=== PATIENT | male | born 1945 | race Two or more races ===

== ENCOUNTER → 2022-05-20 | Outpatient (CLI) | payer OTHER ==
[2022-05-21 07:07] LABS: RPR Non Reactive (Non Reactive)
== END | disposition home or self-care (01) ==
LOC: LAB 08:40
PROVIDERS: ATTEND Internal Medicine
DX: H47.011 Ischemic optic neuropathy, right eye (principal)
CPT/HCPCS: 86592

== ENCOUNTER → 2022-07-11 | Outpatient (CLI) | payer OTHER | END | disposition home or self-care (01) | LOC: LAB 10:24 | PROVIDERS: ATTEND Internal Medicine | DX: R97.20 Elevated prostate specific antigen [PSA] (principal) | CPT/HCPCS: 84153 ==

== ENCOUNTER → 2023-02-19 | Outpatient (CLI) | payer OTHER ==
[2023-02-19 09:05] LABS: Basophils # (auto) 0.1 10 ^3/uL (0-0.2); Basophils % (auto) 0.9 % (0.0-2.0); Eosinophils # (auto) 0.3 10 ^3/uL (0-0.8); Eosinophils % (auto) 3.9 % (0.0-7.0); Hematocrit 45.3 % (41.0-53.0); Hemoglobin 15.1 g/dL (13.5-17.5); Lymphocytes # (auto) 2.6 10 ^3/uL (0.4-5.4); Lymphocytes % (auto) 35.2 % (10.0-50.0); Mean Corpuscular Hemoglobin 31.2 pg (28.0-32.0); Mean Corpuscular Hgb Conc. 33.4 g/dL (32.0-36.0); Mean Corpuscular Volume 93.5 fL (80.0-100.0); Monocytes # (auto) 0.6 10 ^3/uL (0-1.3); Monocytes % (auto) 7.8 % (0.0-12.0); Neutrophils # (auto) 3.9 10 ^3/uL (1.6-8.6); Neutrophils % (auto) 52.2 % (37.0-80.0); Red Blood Cells 4.85 10^6/uL (4.5-5.90); Red Cell Distribution Width 15.5 % (11.8-14.3); White Blood Cell 7.5 10^3/uL (4.4-10.8)
[2023-02-19 09:50] LABS: Albumin 4.5 g/dL (3.2-4.8); Alkaline Phosphatase 86 U/L (46-116); Anion Gap 8.4 (5-15); Aspartate Aminotransferase 13 U/L (13-40); BUN/Creatinine Ratio 11.9 (10.0-20.0); Blood Urea Nitrogen 12 mg/dL (9-23); Calcium 9.2 mg/dL (8.5-10.1); Carbon Dioxide 25.6 mmol/L (20-30); Chloride 104 mmol/L (98-107); Glucose 90 mg/dL (74-106); LDL Cholesterol 157 mg/dL (< 100); Potassium 3.6 mmol/L (3.5-5.1); Sodium 138 mmol/L (136-145); Triglycerides 124 mg/dL (< 150)
[2023-02-19 09:51] LABS: Cholesterol 232 mg/dL (< 200); HDL Cholesterol 63 mg/dL (40-59)
[2023-02-19 09:52] LABS: Bilirubin, Total 1.1 mg/dL (0.2-1.0); Total Protein 7.3 g/dL (5.7-8.2)
[2023-02-19 10:03] LABS: Alanine Aminotransferase < 9 U/L (7-40)
== END | disposition home or self-care (01) ==
LOC: LAB 08:27
PROVIDERS: ATTEND Internal Medicine
DX: Z00.01 Encounter for general adult medical examination with abnormal findings (principal); I12.9 Hypertensive chronic kidney disease with stage 1 through stage 4 chronic kidney disease, or unspecified chronic kidney disease; N18.2 Chronic kidney disease, stage 2 (mild); E55.9 Vitamin D deficiency, unspecified
CPT/HCPCS: 36415; 80053; 80061; 82274; 82306; 83036; 84439; 84443; 85025

== ENCOUNTER → 2023-04-17 | Outpatient (CLI) | payer OTHER ==
[2023-04-17 08:41] LABS: Basophils # (auto) 0.1 10 ^3/uL (0-0.2); Eosinophils # (auto) 0.5 10 ^3/uL (0-0.8); Eosinophils % (auto) 7.4 % (0.0-7.0); Hematocrit 48.7 % (41.0-53.0); Lymphocytes # (auto) 2.9 10 ^3/uL (0.4-5.4); Lymphocytes % (auto) 39.1 % (10.0-50.0); Mean Corpuscular Hemoglobin 31.3 pg (28.0-32.0); Mean Corpuscular Hgb Conc. 32.9 g/dL (32.0-36.0); Mean Corpuscular Volume 94.9 fL (80.0-100.0); Monocytes # (auto) 0.6 10 ^3/uL (0-1.3); Monocytes % (auto) 7.7 % (0.0-12.0); Neutrophils # (auto) 3.3 10 ^3/uL (1.6-8.6); Neutrophils % (auto) 44.8 % (37.0-80.0); Red Blood Cells 5.13 10^6/uL (4.5-5.90); White Blood Cell 7.4 10^3/uL (4.4-10.8)
[2023-04-17 09:08] LABS: Urine Bacteria NONE SEEN /hpf (None Seen); Urine Blood Negative /uL (Negative); Urine Clarity Clear (Clear); Urine Color Yellow (Yellow); Urine Mucus FEW (None Seen); Urine Protein, UAD 1+ (Negative); Urine Specific Gravity 1.019 (1.001-1.035); Urine Urobilinogen Normal (Negative); Urine WBC <1 /hpf (0 - 3)
[2023-04-17 09:23] LABS: Prostate Specific Antigen 12.17 ng/mL (0.0-4.0)
[2023-04-17 09:24] LABS: Albumin 4.6 g/dL (3.2-4.8); Alkaline Phosphatase 89 U/L (46-116); Anion Gap 6 (5-15); Aspartate Aminotransferase 16 U/L (13-40); Calcium 9.7 mg/dL (8.5-10.1); Carbon Dioxide 30 mmol/L (20-30); Chloride 104 mmol/L (98-107); Cholesterol 223 mg/dL (< 200); Glucose 94 mg/dL (74-106); HDL Cholesterol 66 mg/dL (40-59); LDL Cholesterol 142 mg/dL (< 100); Potassium 4.8 mmol/L (3.5-5.1); Sodium 140 mmol/L (136-145); Triglycerides 129 mg/dL (< 150)
[2023-04-17 09:25] LABS: BUN/Creatinine Ratio 13.4 (10.0-20.0); Bilirubin, Total 1.1 mg/dL (0.2-1.0); Blood Urea Nitrogen 15 mg/dL (9-23); Total Protein 7.2 g/dL (5.7-8.2)
[2023-04-17 09:26] LABS: Free T4 (Free Thyroxine) 1.41 ng/dL (0.89-1.76)
[2023-04-17 09:28] LABS: Alanine Aminotransferase < 9 U/L (7-40)
[2023-04-17 12:17] LABS: Free T3 3.09 pg/mL (2.3-4.2)
== END | disposition home or self-care (01) ==
LOC: LAB 08:27
PROVIDERS: ATTEND Nurse Practitioner Gerontology
DX: Z01.00 Encounter for examination of eyes and vision without abnormal findings (principal)
CPT/HCPCS: 36415; 80053; 80061; 81001; 83036; 83735; 84153; 84439; 84443; 84481; 85025; 87086

== ENCOUNTER → 2023-05-19 | Outpatient (CLI) | payer OTHER ==
[2023-05-19 09:09] LABS: Basophils # (auto) 0.1 10 ^3/uL (0-0.2); Basophils % (auto) 0.9 % (0.0-2.0); Eosinophils # (auto) 0.5 10 ^3/uL (0-0.8); Eosinophils % (auto) 6.7 % (0.0-7.0); Hematocrit 49.8 % (41.0-53.0); Hemoglobin 16.4 g/dL (13.5-17.5); Lymphocytes % (auto) 36.9 % (10.0-50.0); Mean Corpuscular Hemoglobin 31.4 pg (28.0-32.0); Mean Corpuscular Hgb Conc. 32.8 g/dL (32.0-36.0); Mean Corpuscular Volume 95.8 fL (80.0-100.0); Monocytes # (auto) 0.6 10 ^3/uL (0-1.3); Monocytes % (auto) 7.6 % (0.0-12.0); Neutrophils # (auto) 3.8 10 ^3/uL (1.6-8.6); Neutrophils % (auto) 47.9 % (37.0-80.0); Red Cell Distribution Width 14.8 % (11.8-14.3)
[2023-05-19 09:45] LABS: Alanine Aminotransferase 14 U/L (7-40); Albumin 4.7 g/dL (3.2-4.8); Alkaline Phosphatase 110 U/L (46-116); Anion Gap 7 (5-15); Aspartate Aminotransferase 20 U/L (13-40); BUN/Creatinine Ratio 10.3 (10.0-20.0); Blood Urea Nitrogen 11 mg/dL (9-23); Calcium 9.7 mg/dL (8.5-10.1); Carbon Dioxide 29 mmol/L (20-30); Chloride 103 mmol/L (98-107); Cholesterol 147 mg/dL (< 200); Glucose 92 mg/dL (74-106); LDL Cholesterol 68 mg/dL (< 100); Potassium 4.2 mmol/L (3.5-5.1); Sodium 139 mmol/L (136-145); Triglycerides 129 mg/dL (< 150)
[2023-05-19 09:46] LABS: HDL Cholesterol 65 mg/dL (40-59); Total Protein 7.2 g/dL (5.7-8.2)
[2023-05-19 09:47] LABS: Bilirubin, Total 1.2 mg/dL (0.2-1.0)
[2023-05-19 09:50] LABS: Urine Bacteria NONE SEEN /hpf (None Seen); Urine Blood Negative /uL (Negative); Urine Clarity Clear (Clear); Urine Color Colorless (Yellow); Urine Mucus FEW (None Seen); Urine Protein, UAD TRACE (Negative); Urine Specific Gravity 1.014 (1.001-1.035); Urine Urobilinogen Normal (Negative); Urine WBC 1 /hpf (0 - 3)
[2023-05-19 10:38] LABS: Prostate Specific Antigen 11.56 ng/mL (0.0-4.0)
[2023-05-19 10:41] LABS: Free T3 3.52 pg/mL (2.3-4.2); Free T4 (Free Thyroxine) 1.36 ng/dL (0.89-1.76)
== END | disposition home or self-care (01) ==
LOC: LAB 08:50
PROVIDERS: ATTEND Nurse Practitioner Gerontology
DX: Z00.01 Encounter for general adult medical examination with abnormal findings (principal)
CPT/HCPCS: 36415; 80053; 80061; 81001; 83036; 83735; 84153; 84439; 84443; 84481; 85025; 87086

== ENCOUNTER → 2023-06-03 | Outpatient (CLI) | payer OTHER | END | disposition home or self-care (01) | LOC: XYW 06-02 08:17 | PROVIDERS: ATTEND Student in an Organized Health Care Education/Training Program | DX: R07.9 Chest pain, unspecified (principal); I51.89 Other ill-defined heart diseases | CPT/HCPCS: 93306 ==

== ENCOUNTER → 2023-07-28 | Outpatient (CLI) | payer OTHER ==
[2023-07-28 10:06] LABS: Basophils # (auto) 0.1 10 ^3/uL (0-0.2); Basophils % (auto) 1.1 % (0.0-2.0); Eosinophils # (auto) 0.5 10 ^3/uL (0-0.8); Eosinophils % (auto) 6.2 % (0.0-7.0); Hematocrit 46.4 % (41.0-53.0); Hemoglobin 15.4 g/dL (13.5-17.5); Lymphocytes % (auto) 37.3 % (10.0-50.0); Mean Corpuscular Hemoglobin 31.1 pg (28.0-32.0); Mean Corpuscular Hgb Conc. 33.2 g/dL (32.0-36.0); Mean Corpuscular Volume 93.7 fL (80.0-100.0); Monocytes # (auto) 0.6 10 ^3/uL (0-1.3); Monocytes % (auto) 7.2 % (0.0-12.0); Neutrophils % (auto) 48.2 % (37.0-80.0); Nucleated Red Blood Cells % 0.1 %; Red Blood Cells 4.95 10^6/uL (4.5-5.90); Red Cell Distribution Width 15.6 % (11.8-14.3); White Blood Cell 8.2 10^3/uL (4.4-10.8)
[2023-07-28 10:18] LABS: Urine Bacteria NONE SEEN /hpf (None Seen); Urine Blood Negative /uL (Negative); Urine Clarity Clear (Clear); Urine Color Yellow (Yellow); Urine Mucus FEW (None Seen); Urine Protein, UAD 1+ (Negative); Urine Specific Gravity 1.021 (1.001-1.035); Urine Urobilinogen Normal (Negative); Urine WBC 1 /hpf (0 - 3); Urine pH 5.5 (5.0-8.0)
[2023-07-28 10:25] LABS: Alanine Aminotransferase 13 U/L (7-40); Alkaline Phosphatase 107 U/L (46-116); Anion Gap 8 (5-15); BUN/Creatinine Ratio 15.6 (10.0-20.0); Blood Urea Nitrogen 15 mg/dL (9-23); Calcium 9.5 mg/dL (8.5-10.1); Carbon Dioxide 26 mmol/L (20-30); Chloride 106 mmol/L (98-107); Glucose 97 mg/dL (74-106); Potassium 3.5 mmol/L (3.5-5.1); Sodium 140 mmol/L (136-145)
[2023-07-28 10:26] LABS: Albumin 4.7 g/dL (3.2-4.8)
[2023-07-28 10:27] LABS: Bilirubin, Total 0.9 mg/dL (0.2-1.0)
[2023-07-28 10:49] LABS: Aspartate Aminotransferase 21 U/L (13-40)
[2023-07-28 12:55] LABS: Creatinine, Urine 131.35 mg/dL (30.0-125.0)
== END | disposition home or self-care (01) ==
LOC: LAB 08:44
PROVIDERS: ATTEND Internal Medicine Nephrology
DX: E11.22 Type 2 diabetes mellitus with diabetic chronic kidney disease (principal); N18.30 Chronic kidney disease, stage 3 unspecified; R80.9 Proteinuria, unspecified; D63.1 Anemia in chronic kidney disease; E55.9 Vitamin D deficiency, unspecified; M10.9 Gout, unspecified; E21.3 Hyperparathyroidism, unspecified; E11.21 Type 2 diabetes mellitus with diabetic nephropathy; N39.0 Urinary tract infection, site not specified
CPT/HCPCS: 36415; 80053; 81001; 82043; 82306; 82570; 83036; 83970; 85025; 87086

== ENCOUNTER → 2023-08-07 | Outpatient (CLI) | payer OTHER ==
[~2023-08-07] VITALS: Ht 152.4 cm; Wt 59.0 kg
[2023-08-07] MEDS: ADENOSINE 50 MG in GIVE UN-DILUTED 0 ML IV ONE (10:36)
== END | disposition home or self-care (01) ==
LOC: XYW 08:10
PROVIDERS: ATTEND Student in an Organized Health Care Education/Training Program
DX: R07.9 Chest pain, unspecified (principal); I10 Essential (primary) hypertension; E78.5 Hyperlipidemia, unspecified
CPT/HCPCS: 78452; 93017; A9500; J0153

== ENCOUNTER 2023-08-20 09:34 | Day surgery (SDC) | payer OTHER ==
[2023-08-14 11:39] LABS: Basophils # (auto) 0.1 10 ^3/uL (0-0.2); Eosinophils # (auto) 0.4 10 ^3/uL (0-0.8); Eosinophils % (auto) 5.4 % (0.0-7.0); Hematocrit 46.9 % (41.0-53.0); Hemoglobin 15.5 g/dL (13.5-17.5); Lymphocytes # (auto) 2.5 10 ^3/uL (0.4-5.4); Lymphocytes % (auto) 33.5 % (10.0-50.0); Mean Corpuscular Hgb Conc. 33.2 g/dL (32.0-36.0); Mean Corpuscular Volume 93.3 fL (80.0-100.0); Monocytes # (auto) 0.5 10 ^3/uL (0-1.3); Neutrophils # (auto) 3.9 10 ^3/uL (1.6-8.6); Neutrophils % (auto) 53.1 % (37.0-80.0); Red Blood Cells 5.02 10^6/uL (4.5-5.90); Red Cell Distribution Width 15.2 % (11.8-14.3); White Blood Cell 7.3 10^3/uL (4.4-10.8)
[2023-08-14 12:05] LABS: Alanine Aminotransferase 13 U/L (7-40); Albumin 4.8 g/dL (3.2-4.8); Alkaline Phosphatase 105 U/L (46-116); Anion Gap 7 (5-15); Aspartate Aminotransferase 20 U/L (13-40); BUN/Creatinine Ratio 16.2 (10.0-20.0); Blood Urea Nitrogen 16 mg/dL (9-23); Calcium 9.4 mg/dL (8.7-10.4); Carbon Dioxide 28 mmol/L (20-30); Chloride 105 mmol/L (98-107); Glucose 153 mg/dL (74-106); INR 0.99 (0.9-1.15); Partial Thromboplastin Time 27.9 SEC (24.5-34.5); Potassium 3.7 mmol/L (3.5-5.1); Prothrombin Time 10.4 sec (9.3-11.8); Sodium 140 mmol/L (136-145)
[2023-08-14 12:06] LABS: Total Protein 7.4 g/dL (5.7-8.2)
[~2023-08-20] VITALS: Ht 152.4 cm; Wt 58.1 kg
[~2023-08-20 09:34] MED LIST: ATO40T PO; NIFE1TAB30 PO; TELM1TAB33 PO
[2023-08-20] MEDS ORDERED: SODIUM CHLORIDE LOCK 10 ML ONE (10:29)
[2023-08-20] MEDS: fentaNYL CITRATE 100 MCG/2 ML VL ONE (11:03)
[2023-08-20] MEDS: MIDAZOLAM HCL 5 MG/ML-1ML VIAL ONE (11:03)
[2023-08-20] MEDS: diphenhdrAMINE HCL 50 MG/1 ML VL ONE (11:03)
[2023-08-20 11:20] VITALS: TEMP 98.3; O2SAT 98
[2023-08-20 11:50] VITALS: BP 150/87; PULSE 78; RESP 18; O2SAT 98
== END 2023-08-20 12:05 | disposition home or self-care (01) ==
LOC: GI 09:34
PROVIDERS: ATTEND Internal Medicine Gastroenterology
DX: Z12.11 Encounter for screening for malignant neoplasm of colon (principal); D12.4 Benign neoplasm of descending colon; K64.8 Other hemorrhoids; I10 Essential (primary) hypertension; E78.5 Hyperlipidemia, unspecified; Z98.41 Cataract extraction status, right eye; Z98.42 Cataract extraction status, left eye; Z86.010 Personal history of colon polyps; Z79.899 Other long term (current) drug therapy; Z98.890 Other specified postprocedural states
CPT/HCPCS: 36415; 45385; 80053; 85025; 85610; 85730; 88305; J1200; J2250; J3010; J7030; 99152

== ENCOUNTER → 2023-09-24 | Outpatient (CLI) | payer OTHER ==
[~2023-09-24] MED LIST changes: -ATO40T PO; +ATOR-507 PO
[2023-09-24 07:55] LABS: Urine Bacteria None Seen /hpf (None Seen)
[2023-09-24 08:04] LABS: Basophils # (auto) 0.1 10 ^3/uL (0-0.2); Basophils % (auto) 1.2 % (0.0-2.0); Eosinophils # (auto) 0.6 10 ^3/uL (0-0.8); Eosinophils % (auto) 6.6 % (0.0-7.0); Hematocrit 46.1 % (41.0-53.0); Hemoglobin 15.2 g/dL (13.5-17.5); Lymphocytes # (auto) 3.2 10 ^3/uL (0.4-5.4); Lymphocytes % (auto) 37.1 % (10.0-50.0); Mean Corpuscular Hemoglobin 30.9 pg (28.0-32.0); Mean Corpuscular Volume 93.8 fL (80.0-100.0); Monocytes # (auto) 0.7 10 ^3/uL (0-1.3); Monocytes % (auto) 8.3 % (0.0-12.0); Neutrophils # (auto) 4.1 10 ^3/uL (1.6-8.6); Neutrophils % (auto) 46.8 % (37.0-80.0); Red Blood Cells 4.91 10^6/uL (4.5-5.90); Red Cell Distribution Width 14.7 % (11.8-14.3); White Blood Cell 8.7 10^3/uL (4.4-10.8)
[2023-09-24 08:19] LABS: Urine Blood TRACE /uL (Negative); Urine Clarity Clear (Clear); Urine Color Light-Yellow (Yellow); Urine Mucus FEW (None Seen); Urine Protein, UAD TRACE (Negative); Urine Specific Gravity 1.017 (1.001-1.035); Urine Urobilinogen Normal (Negative); Urine WBC 1 /hpf (0 - 3)
[2023-09-24 08:33] LABS: Alanine Aminotransferase 14 U/L (7-40); Albumin 4.9 g/dL (3.2-4.8); Alkaline Phosphatase 120 U/L (46-116); Anion Gap 7 (5-15); Aspartate Aminotransferase 22 U/L (13-40); BUN/Creatinine Ratio 14.7 (10.0-20.0); Blood Urea Nitrogen 16 mg/dL (9-23); Calcium 9.8 mg/dL (8.5-10.1); Carbon Dioxide 27 mmol/L (20-30); Chloride 105 mmol/L (98-107); Cholesterol 140 mg/dL (< 200); Glucose 94 mg/dL (74-106); HDL Cholesterol 71 mg/dL (40-59); LDL Cholesterol 52 mg/dL (< 100); Potassium 3.8 mmol/L (3.5-5.1); Sodium 139 mmol/L (136-145); Triglycerides 101 mg/dL (< 150)
[2023-09-24 08:34] LABS: Total Protein 7.3 g/dL (5.7-8.2)
[2023-09-24 09:12] LABS: Prostate Specific Antigen 12.44 ng/mL (0.0-4.0)
[2023-09-24 09:15] LABS: Free T3 3.22 pg/mL (2.3-4.2)
[2023-09-24 09:16] LABS: T3 Total 0.92 ng/mL (0.60-1.81)
[2023-09-24 09:17] LABS: Free T4 (Free Thyroxine) 1.39 ng/dL (0.89-1.76)
== END | disposition home or self-care (01) ==
LOC: LAB 07:42
PROVIDERS: ATTEND Nurse Practitioner Gerontology
DX: Z12.5 Encounter for screening for malignant neoplasm of prostate (principal); N18.2 Chronic kidney disease, stage 2 (mild); E78.5 Hyperlipidemia, unspecified; R73.9 Hyperglycemia, unspecified; R94.4 Abnormal results of kidney function studies; N13.30 Unspecified hydronephrosis; N40.0 Benign prostatic hyperplasia without lower urinary tract symptoms; R97.20 Elevated prostate specific antigen [PSA]; Z79.899 Other long term (current) drug therapy
CPT/HCPCS: 36415; 80053; 80061; 81001; 83036; 84153; 84439; 84443; 84480; 84481; 85025; 87086

== ENCOUNTER → 2024-01-12 | Outpatient (CLI) | payer OTHER ==
[2024-01-12 11:44] LABS: Anion Gap 10 (5-15); Carbon Dioxide 19 mmol/L (20-30); Chloride 111 mmol/L (98-107); Potassium 3.7 mmol/L (3.5-5.1); Sodium 140 mmol/L (136-145)
[2024-01-12 11:51] LABS: Blood Urea Nitrogen 17 mg/dL (9-23); Glucose 106 mg/dL (74-106)
== END | disposition home or self-care (01) ==
LOC: LAB 10:24
PROVIDERS: ATTEND Urology
DX: R97.20 Elevated prostate specific antigen [PSA] (principal)
CPT/HCPCS: 36415; 80048

== ENCOUNTER → 2024-01-26 | Outpatient (CLI) | payer OTHER ==
[2024-01-26 11:08] LABS: Creatinine, Urine 89.53 mg/dL (30.0-125.0)
[2024-01-26 11:09] LABS: Alanine Aminotransferase 15 U/L (7-40); Albumin 4.8 g/dL (3.2-4.8); Alkaline Phosphatase 116 U/L (46-116); Anion Gap 8 (5-15); Aspartate Aminotransferase 18 U/L (13-40); BUN/Creatinine Ratio 13.5 (10.0-20.0); Bilirubin, Total 1.1 mg/dL (0.2-1.0); Blood Urea Nitrogen 15 mg/dL (9-23); Calcium 9.8 mg/dL (8.7-10.4); Carbon Dioxide 26 mmol/L (20-30); Chloride 105 mmol/L (98-107); Glucose 98 mg/dL (74-106); Magnesium 2.1 mg/dL (1.6-2.6); Potassium 4.2 mmol/L (3.5-5.1); Sodium 139 mmol/L (136-145); Total Protein 7.7 g/dL (5.7-8.2); Uric Acid 4.7 mg/dL (3.7-9.2)
== END | disposition home or self-care (01) ==
LOC: LAB 09:00
PROVIDERS: ATTEND Internal Medicine Nephrology
DX: E83.39 Other disorders of phosphorus metabolism (principal); R80.9 Proteinuria, unspecified; M10.9 Gout, unspecified; N18.31 Chronic kidney disease, stage 3a
CPT/HCPCS: 36415; 80053; 82043; 82306; 82570; 83735; 84550

== ENCOUNTER 2024-04-15 06:21 | Day surgery (SDC) | payer OTHER ==
[2024-04-13 11:03] LABS: Urine Bacteria None Seen /hpf (None Seen); Urine WBC None Seen /hpf (0 - 3)
[2024-04-13 11:22] LABS: Basophils # (auto) 0.1 10 ^3/uL (0-0.2); Basophils % (auto) 0.8 % (0.0-2.0); Eosinophils # (auto) 0.3 10 ^3/uL (0-0.8); Eosinophils % (auto) 3.2 % (0.0-7.0); Hemoglobin 15.9 g/dL (13.5-17.5); Lymphocytes # (auto) 1.8 10 ^3/uL (0.4-5.4); Lymphocytes % (auto) 22.5 % (10.0-50.0); Mean Corpuscular Hemoglobin 31.1 pg (28.0-32.0); Mean Corpuscular Hgb Conc. 33.8 g/dL (32.0-36.0); Monocytes # (auto) 0.6 10 ^3/uL (0-1.3); Monocytes % (auto) 7.5 % (0.0-12.0); Neutrophils # (auto) 5.4 10 ^3/uL (1.6-8.6); Platelet Count (auto) 195 10^3/uL (140-450); Red Blood Cells 5.11 10^6/uL (4.5-5.90); Red Cell Distribution Width 14.8 % (11.8-14.3); Urine Blood TRACE /uL (Negative); Urine Clarity Clear (Clear); Urine Color Colorless (Yellow); Urine Protein, UAD Negative (Negative); Urine Specific Gravity 1.005 (1.001-1.035); Urine Urobilinogen Normal (Negative); Urine pH 5.5 (5.0-9.0); White Blood Cell 8.2 10^3/uL (4.4-10.8)
[2024-04-13 11:31] LABS: Alanine Aminotransferase 11 U/L (7-40); Alkaline Phosphatase 120 U/L (46-116); Anion Gap 9 (5-15); Aspartate Aminotransferase 18 U/L (13-40); BUN/Creatinine Ratio 10.8 (10.0-20.0); Blood Urea Nitrogen 11 mg/dL (9-23); Calcium 9.9 mg/dL (8.7-10.4); Carbon Dioxide 25 mmol/L (20-31); Chloride 106 mmol/L (98-107); Glucose 108 mg/dL (74-106); Potassium 3.7 mmol/L (3.5-5.1); Sodium 140 mmol/L (136-145)
[2024-04-13 11:32] LABS: Total Protein 7.9 g/dL (5.7-8.2)
[2024-04-13 11:35] LABS: Bilirubin, Total 0.8 mg/dL (0.2-1.0)
[2024-04-13 11:37] LABS: INR 0.97 (0.9-1.15); Partial Thromboplastin Time 26.1 SEC (24.5-34.5); Prothrombin Time 10.3 sec (9.3-11.8)
[~2024-04-15] VITALS: Ht 152.4 cm; Wt 58.1 kg
[~2024-04-15 06:21] MED LIST changes: -TELM1TAB33 PO
[2024-04-15] MEDS ORDERED: fentaNYL CITRATE 100 MCG/2 ML VL ONE (07:05)
[2024-04-15] MEDS ORDERED: PHENYLEPHRINE HCL 10 MG/ML VL ONE (07:07)
[2024-04-15] MEDS ORDERED: PROPOFOL 10 MG/ML 20 ML IV ONE (07:07)
--- NOTE | 2024-04-15 07:52 | DVHDS2 ---
New Physician D'charge PN Admitting Diagnosis Admitting Diagnosis Elevated PSA and 4 K score Discharge Diagnosis Same Operations or Procedures Transrectal ultrasound-guided prostate biopsy Reason(s) For Hospitalization Surgery Treatment Plan Discharge Condition of Discharge Good Disposition Home Discharge Instructions Diet: Regular Activity: Light activity Medications: Ciprofloxacin 500 mg p.o. b.i.d. x3 days Follow Up Care Follow Up/Referral: Two weeks follow-up for pathology results Discharge Statement: "Patient was advised to return to the ER or call 911 if any headaches, dizziness, shortness of breath, chest pain, abdominal pain, bleeding, fevers, or worsening of medical condition. Patient was counseled about treatment plan, medications, possible side effects, patientverbalized understanding. All questions were answered to the best of my ability. This discharge took greater then 30 minutes in planning, reviewing documentation, counseling the patient, and discussing with other team members." MOON WYNN MD Apr 15, 2024 07:52
[2024-04-15 08:05] VITALS: PULSE 83; RESP 12; TEMP 98.2; O2SAT 96
[2024-04-15] MEDS ORDERED: MEPERIDINE HCL (25 MG/ML) 1ML VIAL IV PRN (08:15)
[2024-04-15] MEDS ORDERED: ONDANSETRON HCL 4 MG/2 ML VIAL IV ONE (08:15)
[2024-04-15 08:20] VITALS: BP 134/77; PULSE 88; RESP 14; O2SAT 95
== END 2024-04-15 08:36 | disposition home or self-care (01) ==
LOC: SUR 06:21
PROVIDERS: ATTEND Urology
DX: R97.20 Elevated prostate specific antigen [PSA] (principal); I10 Essential (primary) hypertension; E78.5 Hyperlipidemia, unspecified; I48.91 Unspecified atrial fibrillation; Z79.899 Other long term (current) drug therapy; Z98.890 Other specified postprocedural states
CPT/HCPCS: 36415; 55700; 76942; 80053; 81001; 85025; 85610; 85730; 87086; 88305; 88342; J2371; J2704; J3010

== ENCOUNTER 2024-04-15 10:18 | Emergency (ER) | payer OTHER ==
[~2024-04-15] VITALS: Ht 162.6 cm; Wt 59.0 kg
[2024-04-15 11:31] LABS: Basophils # (auto) 0.1 10 ^3/uL (0-0.2); Basophils % (auto) 0.6 % (0.0-2.0); Eosinophils # (auto) 0.1 10 ^3/uL (0-0.8); Eosinophils % (auto) 0.8 % (0.0-7.0); Hematocrit 43.2 % (41.0-53.0); Hemoglobin 14.3 g/dL (13.5-17.5); Lymphocytes % (auto) 11.6 % (10.0-50.0); Mean Corpuscular Hemoglobin 30.8 pg (28.0-32.0); Mean Corpuscular Hgb Conc. 33.2 g/dL (32.0-36.0); Mean Corpuscular Volume 92.8 fL (80.0-100.0); Monocytes # (auto) 0.6 10 ^3/uL (0-1.3); Monocytes % (auto) 6.6 % (0.0-12.0); Neutrophils # (auto) 6.9 10 ^3/uL (1.6-8.6); Neutrophils % (auto) 80.4 % (37.0-80.0); Platelet Count (auto) 170 10^3/uL (140-450); Red Blood Cells 4.65 10^6/uL (4.5-5.90); Red Cell Distribution Width 15.5 % (11.8-14.3); White Blood Cell 8.6 10^3/uL (4.4-10.8)
[2024-04-15 12:08] LABS: Chloride 106 mmol/L (98-107); Sodium 140 mmol/L (136-145)
[2024-04-15 12:11] LABS: Anion Gap 11 (5-15); Calcium 9.2 mg/dL (8.7-10.4); Carbon Dioxide 23 mmol/L (20-31)
[2024-04-15 12:16] LABS: BUN/Creatinine Ratio 8.5 (10.0-20.0); Blood Urea Nitrogen 9 mg/dL (9-23); Glucose 177 mg/dL (74-106)
[2024-04-15 13:20] VITALS: BP 137/83; PULSE 87; RESP 17; TEMP 97.9; O2SAT 99
== END 2024-04-15 13:21 | disposition home or self-care (01) ==
LOC: ER 10:18 → EDBD 10:18 → EDUNIT# 10:18 → ER 13:21
DX: I10 Essential (primary) hypertension (principal); G90.9 Disorder of the autonomic nervous system, unspecified; E78.5 Hyperlipidemia, unspecified; R55 Syncope and collapse; Z90.49 Acquired absence of other specified parts of digestive tract
CPT/HCPCS: 36415; 70450; 80048; 84484; 85025; 93005

== ENCOUNTER → 2024-04-20 | Outpatient (CLI) | payer OTHER ==
[2024-04-20 08:43] LABS: Basophils # (auto) 0.1 10 ^3/uL (0-0.2); Basophils % (auto) 1.2 % (0.0-2.0); Eosinophils # (auto) 0.5 10 ^3/uL (0-0.8); Eosinophils % (auto) 6.6 % (0.0-7.0); Hematocrit 46.9 % (41.0-53.0); Hemoglobin 15.5 g/dL (13.5-17.5); Lymphocytes # (auto) 2.9 10 ^3/uL (0.4-5.4); Lymphocytes % (auto) 41.7 % (10.0-50.0); Mean Corpuscular Hemoglobin 30.5 pg (28.0-32.0); Mean Corpuscular Volume 92.4 fL (80.0-100.0); Monocytes # (auto) 0.7 10 ^3/uL (0-1.3); Monocytes % (auto) 9.6 % (0.0-12.0); Neutrophils # (auto) 2.8 10 ^3/uL (1.6-8.6); Neutrophils % (auto) 40.9 % (37.0-80.0); Nucleated Red Blood Cells % 0.1 %; Platelet Count (auto) 173 10^3/uL (140-450); Red Blood Cells 5.07 10^6/uL (4.5-5.90); Red Cell Distribution Width 15.3 % (11.8-14.3); White Blood Cell 6.8 10^3/uL (4.4-10.8)
[2024-04-20 09:05] LABS: Protein, Urine 21.7 mg/dL (1-14)
[2024-04-20 09:08] LABS: Creatinine, Urine 59.46 mg/dL (30.0-125.0); Urine Protein/Creatinine Ratio 0.36
[2024-04-20 09:11] LABS: Alanine Aminotransferase 14 U/L (7-40); Albumin 4.7 g/dL (3.2-4.8); Alkaline Phosphatase 112 U/L (46-116); Anion Gap 5 (5-15); Aspartate Aminotransferase 21 U/L (13-40); BUN/Creatinine Ratio 12.1 (10.0-20.0); Blood Urea Nitrogen 12 mg/dL (9-23); Calcium 9.7 mg/dL (8.7-10.4); Carbon Dioxide 29 mmol/L (20-31); Chloride 106 mmol/L (98-107); Glucose 96 mg/dL (74-106); Magnesium 2.3 mg/dL (1.6-2.6); Potassium 4.1 mmol/L (3.5-5.1); Sodium 140 mmol/L (136-145); Uric Acid 4.5 mg/dL (3.7-9.2)
[2024-04-20 09:12] LABS: Bilirubin, Total 1.1 mg/dL (0.2-1.0); Total Protein 7.1 g/dL (5.7-8.2)
== END | disposition home or self-care (01) ==
LOC: LAB 08:16
PROVIDERS: ATTEND Obstetrics & Gynecology
DX: E11.21 Type 2 diabetes mellitus with diabetic nephropathy (principal); N39.0 Urinary tract infection, site not specified; E55.9 Vitamin D deficiency, unspecified; E21.3 Hyperparathyroidism, unspecified; N18.30 Chronic kidney disease, stage 3 unspecified; D63.1 Anemia in chronic kidney disease; R80.9 Proteinuria, unspecified; M10.9 Gout, unspecified
CPT/HCPCS: 36415; 80053; 82306; 82570; 83036; 83735; 83970; 84100; 84156; 84550; 85025

== ENCOUNTER → 2024-06-18 | Outpatient (CLI) | payer OTHER ==
[2024-06-18 07:50] LABS: Urine Bacteria None Seen /hpf (None Seen)
[2024-06-18 08:27] LABS: Alanine Aminotransferase 13 U/L (7-40); Albumin 4.6 g/dL (3.2-4.8); Anion Gap 8 (5-15); Aspartate Aminotransferase 24 U/L (13-40); BUN/Creatinine Ratio 10.1 (10.0-20.0); Bilirubin, Total 0.9 mg/dL (0.2-1.0); Blood Urea Nitrogen 10 mg/dL (9-23); Carbon Dioxide 28 mmol/L (20-31); Chloride 105 mmol/L (98-107); Cholesterol 157 mg/dL (< 200); LDL Cholesterol 79 mg/dL (< 100); Sodium 141 mmol/L (136-145); Total Protein 7.1 g/dL (5.7-8.2); Triglycerides 139 mg/dL (< 150)
[2024-06-18 08:30] LABS: Urine Blood Negative /uL (Negative); Urine Clarity Clear (Clear); Urine Color Light-Yellow (Yellow); Urine Mucus FEW (None Seen); Urine Protein, UAD TRACE (Negative); Urine Specific Gravity 1.011 (1.001-1.035); Urine Squamous Epithelial Cell None Seen /hpf (<5); Urine Urobilinogen Normal (Negative); Urine WBC <1 /hpf (0 - 3); Urine pH 6.5 (5.0-9.0)
[2024-06-18 08:32] LABS: Alkaline Phosphatase 117 U/L (46-116); Glucose 108 mg/dL (74-106); HDL Cholesterol 64 mg/dL (40-59); Potassium 3.5 mmol/L (3.5-5.1)
[2024-06-18 08:33] LABS: Basophils # (auto) 0.1 10 ^3/uL (0-0.2); Basophils % (auto) 0.9 % (0.0-2.0); Eosinophils # (auto) 0.6 10 ^3/uL (0-0.8); Eosinophils % (auto) 7.5 % (0.0-7.0); Hematocrit 44.2 % (41.0-53.0); Lymphocytes # (auto) 3.4 10 ^3/uL (0.4-5.4); Lymphocytes % (auto) 43.9 % (10.0-50.0); Mean Corpuscular Hemoglobin 31.4 pg (28.0-32.0); Mean Corpuscular Volume 92.5 fL (80.0-100.0); Monocytes # (auto) 0.6 10 ^3/uL (0-1.3); Monocytes % (auto) 7.9 % (0.0-12.0); Neutrophils # (auto) 3.1 10 ^3/uL (1.6-8.6); Neutrophils % (auto) 39.8 % (37.0-80.0); Platelet Count (auto) 164 10^3/uL (140-450); Red Blood Cells 4.78 10^6/uL (4.5-5.90); White Blood Cell 7.8 10^3/uL (4.4-10.8)
== END | disposition home or self-care (01) ==
LOC: LAB 07:35
PROVIDERS: ATTEND Internal Medicine
DX: I12.9 Hypertensive chronic kidney disease with stage 1 through stage 4 chronic kidney disease, or unspecified chronic kidney disease (principal); N18.2 Chronic kidney disease, stage 2 (mild); R97.20 Elevated prostate specific antigen [PSA]; E55.9 Vitamin D deficiency, unspecified
CPT/HCPCS: 36415; 80053; 80061; 81001; 83036; 84443; 84481; 85025

== ENCOUNTER → 2024-07-16 | Outpatient (CLI) | payer OTHER ==
[2024-07-16 13:56] LABS: Creatinine, Urine 49.58 mg/dL (30.0-125.0)
== END | disposition home or self-care (01) ==
LOC: LAB 10:38
PROVIDERS: ATTEND Internal Medicine
DX: R97.20 Elevated prostate specific antigen [PSA] (principal); R80.9 Proteinuria, unspecified; R82.90 Unspecified abnormal findings in urine
CPT/HCPCS: 36415; 82043; 82570; 84153

== ENCOUNTER → 2024-08-16 | Outpatient (CLI) | payer OTHER ==
[2024-08-16 11:12] LABS: Creatinine, Urine 82.41 mg/dL (30.0-125.0)
[2024-08-16 11:13] LABS: Protein, Urine 33.5 mg/dL (1-14); Urine Protein/Creatinine Ratio 0.41
[2024-08-16 11:15] LABS: Alkaline Phosphatase 108 U/L (46-116); Anion Gap 10 (5-15); BUN/Creatinine Ratio 14.9 (10.0-20.0); Blood Urea Nitrogen 15 mg/dL (9-23); Calcium 10.1 mg/dL (8.7-10.4); Carbon Dioxide 25 mmol/L (20-31); Chloride 103 mmol/L (98-107); Glucose 101 mg/dL (74-106); Magnesium 2.1 mg/dL (1.6-2.6); Potassium 3.7 mmol/L (3.5-5.1); Sodium 138 mmol/L (136-145); Total Protein 7.8 g/dL (5.7-8.2)
[2024-08-16 11:16] LABS: Aspartate Aminotransferase 16 U/L (13-40); Phosphorus 3.4 mg/dL (2.4-5.1)
[2024-08-16 11:17] LABS: Bilirubin, Total 0.9 mg/dL (0.2-1.0)
[2024-08-16 11:25] LABS: Alanine Aminotransferase < 9 U/L (7-40); Albumin 5.1 g/dL (3.2-4.8)
[2024-08-16 12:00] LABS: Uric Acid 4.7 mg/dL (3.7-9.2)
== END | disposition home or self-care (01) ==
LOC: LAB 09:59
PROVIDERS: ATTEND Internal Medicine
DX: E11.22 Type 2 diabetes mellitus with diabetic chronic kidney disease (principal); N18.30 Chronic kidney disease, stage 3 unspecified; E11.21 Type 2 diabetes mellitus with diabetic nephropathy; N39.0 Urinary tract infection, site not specified; E21.3 Hyperparathyroidism, unspecified; E55.9 Vitamin D deficiency, unspecified; M10.9 Gout, unspecified; R80.9 Proteinuria, unspecified; D63.1 Anemia in chronic kidney disease
CPT/HCPCS: 36415; 80053; 82306; 82570; 83735; 83970; 84100; 84156; 84550

== ENCOUNTER 2024-09-04 17:19 | Inpatient (IN) | payer OTHER ==
[~2024-09-04] VITALS: Ht 149.9 cm; Wt 59.2 kg
--- NOTE | 2024-09-04 18:06 | ED.PDOC ---
SOB-HPI HPI Comments 79-year-old male presents with a chief complaint of cough x 4 days. Patient states that he has been having an unproductive cough for the past 4 days. Patient was sating at 89% on room air and was placed on 2L/NC. Patient does not use supplemental oxygen at home. Patient also denies any sick contacts. Patient denies smoking, any respiratory issues, SOB or chest pain at this time. PMHx: HTN, HLD PSHx: Cholecystectomy, Prostate Surgery HPI: Poor Historian. REVIEW OF SYSTEMS: CONSTITUTIONAL: Denies acute: fever, diaphoresis, chills, generalized weakness. HEAD: Denies acute: headache, photophobia Eyes: Denies acute: Double vision, vision loss, eye pain, eye discharge. EARS: Denies acute: tinnitus, hearing loss, ear discharge, ear pain, THROAT: Denies acute: sore throat, swelling, difficulty swallowing , pain with swallowing, change in voice. NECK: Denies acute: neck pain, neck swelling, stiff neck. HEART: Denies acute : chest pain, palpitations, LUNGS: Denies acute: SOB, wheezing, hemoptysis ABDOMEN: Denies acute: abdominal pain, Nausea, Vomiting, diarrhea, melena , hematemesis, hematochezia SKIN: Denies acute: rash, redness, lesions, itchiness. EXTREMITIES: Denies acute: calf pain, numbness, tingling, weakness, denies pain in extremity. Denies acute: Low back pain. Neuro: Denies acute: focal neurological deficit, motor or sensory focal neurological deficit, tremors, seizure like activity, confusion, dizziness, change in mental status, loss of bowel or bladder function, cauda equina like symptoms. : Denies acute: dysuria, hematuria, flank pain, increase in urinary frequency. PSYCH: Denies acute: hallucination, suicidal ideation, homicidal ideation. PHYSICAL EXAM: General: no acute distress, awake and alert. Head: normocephalic, atraumatic. Neck: supple, trachea is midline, no swelling. Throat: Normal phonation. Eyes:, no erythema, no purulent discharge, no proptosis, no icterus. Heart: regular rate, regular rhythm, no significant murmur appreciated. Lungs: no apparent respiratory distress, Able to speak in full sentences. No wheezing, no rhonchi, no crackles. No stridors Clear to auscultation bilaterally. Abdomen: non tender to palpation, non distended, soft, no guarding, no rebound, + bowel sounds. Neuro: Awake, Alert, oriented to name, self, situation, follows commands GCS=15. Speech is normal. Skin: no petechia, no purpura, no cyanosis, non-pale, not jaundice. Lower extremities: --no - Pitting edema no deformity, no focal swelling, no calf TTP. Makes eye contact. moves all four extremities. Face: no apparent facial droop. Ambulating in the ED independently. ED COURSE: Chief Complaint: Cough Time Seen by MD: 17:58 Primary Care Provider: DR. WYNN Reviewed notes: Nurses Notes, Medications, Allergies Information Source: Patient Mode of Arrival: Ambulatory Severity: Moderate Past Medical History PAST MEDICAL HISTORY: High Lipids, HTN Surgical History: Cholecystectomy Surgical History (Other): Prostate Family History Family History: Reviewed,noncontributory to illness Social History Smoker: Non-Smoker Alcohol: Denies ETOH Use Drugs: Denies Drug Use Lives In: Home Was a procedure done? Was a procedure done?: No Differential Dx Differential Diagnosis: Other (DDx include ACS, unstable angina, anxiety, PE, pneumothroax, neoplasm, cardiac ischemia, COPD, asthma, CHF, pleural effusion, t obacco abuse, pneumonia, hypoxia, hypercapnia, anemia., infection/sepsis., pulmonary edema. Asthma, Cardiac tamponade, infection.) X-Ray, Labs, Meds, VS Vital Signs Date Time Temp Pulse Resp B/P (MAP) Pulse Ox O2 Delivery O2 Flow Rate FiO2 09/04/24 19:29 98.5 98 20 135/74 (94) 95 98.5 09/04/24 19:29 98 20 95 Nasal Cannula* 2 28 09/04/24 18:30 98.9 95 16 129/74 (92) 95 98.9 09/04/24 18:30 95 16 95 Nasal Cannula* 2 28 09/04/24 17:51 92 09/04/24 17:50 20 89 Room Air* 0 21 09/04/24 17:50 99.3 94 19 101/61 (74) 95 99.3 Lab Test 09/04/24 20:57 09/04/24 18:58 09/04/24 17:58 09/04/24 17:56 Range/Units Troponin I High Sensitivity Pending 8 8 </=54 ng/L Influenza Type A Antigen Negative Negative Influenza Type B Antigen Negative Negative SARS-CoV-2 Antigen (Rapid) Negative NEGATIVE White Blood Count 7.0 4.4-10.8 10^3/uL Red Blood Count 4.54 4.5-5.90 10^6/uL Hemoglobin 14.5 13.5-17.5 g/dL Hematocrit 41.9 41.0-53.0 % Mean Corpuscular Volume 92.5 80.0-100.0 fL Mean Corpuscular Hemoglobin 31.9 28.0-32.0 pg Mean Corpuscular Hemoglobin Concent 34.5 32.0-36.0 g/dL Red Cell Distribution Width 14.6 H 11.8-14.3 % Platelet Count 158 140-450 10^3/uL Mean Platelet Volume 9.7 6.9-10.8 fL Neutrophils (%) (Auto) 73.6 37.0-80.0 % Lymphocytes (%) (Auto) 16.2 10.0-50.0 % Monocytes (%) (Auto) 8.6 0.0-12.0 % Eosinophils (%) (Auto) 0.7 0.0-7.0 % Basophils (%) (Auto) 0.9 0.0-2.0 % Neutrophils # (Auto) 5.1 1.6-8.6 10 ^3/uL Lymphocytes # (Auto) 1.1 0.4-5.4 10 ^3/uL Monocytes # (Auto) 0.6 0-1.3 10 ^3/uL Eosinophils # (Auto) 0 0-0.8 10 ^3/uL Basophils # (Auto) 0.1 0-0.2 10 ^3/uL Nucleated Red Blood Cells 0.2 % D-Dimer, Quantitative 0.43 0.0-0.49 mg/L FEU Sodium Level 137 136-145 mmol/L Potassium Level 3.9 3.5-5.1 mmol/L Chloride Level 102 98-107 mmol/L Carbon Dioxide Level 22 20-31 mmol/L Anion Gap 13 5-15 Blood Urea Nitrogen 17 9-23 mg/dL Creatinine 1.14 0.700-1.30 mg/dL Glomerular Filtration Rate Calc 66 >90 mL/min BUN/Creatinine Ratio 14.9 10.0-20.0 Serum Glucose 152 H 74-106 mg/dL Lactic Acid Level 1.9 0.4-2.0 mmol/L Calcium Level 9.7 8.7-10.4 mg/dL Total Bilirubin 0.7 0.2-1.0 mg/dL Aspartate Amino Transferase (AST) 34 13-40 U/L Alanine Aminotransferase (ALT) 15 7-40 U/L Alkaline Phosphatase 100 46-116 U/L B-Type Natriuretic Peptide 29.70 0-100 pg/mL Total Protein 7.2 5.7-8.2 g/dL Albumin 4.8 3.2-4.8 g/dL Current Medications Medications (Trade) Dose Ordered Sig/Jessica Route Start Time Stop Time Status Last Admin Sodium Chloride 1,000 ml @ 60 mls/hr [id number] IV 09/04/24 21:00 09/04/24 21:16 PATIENT: MITCH FREEDOACCT: [id number]: [id number] : 1945 LOC: ER ROOM / BED: / AGE / SEX: 79 / M ADM STATUS: REG ER SERVICE 39 ORDERING PHYSICIAN: ERIN PAYNE DO PROCEDURE(s): CXRP - CHEST PORTABLE REASON: cough ORDER NUMBER(s): [id number], ACCESSION NUMBER(s): [id number] CHEST RADIOGRAPH Indication: cough Technique: Single frontal view of the chest was obtained Comparison: None FINDINGS: Lines and Tubes: None Lungs: No focal consolidation. Pleura: No effusion. No pneumothorax. Cardiomediastinal contours: Cardiac size upper limits of normal Bones: No acute osseous abnormality. IMPRESSION: 1. Cardiac size is at the upper limits of normal. 2. There are no prior studies for comparison ATED BY: DAVE ANDREW Jr., DO DICTATED DATE/TIME: 09/04/241837 SIGNED BY: DAVE ANDREW Jr., DO SIGNED DATE/TIME: 09/04/241837 Time of 1ST Reevaluation: 18:28 Reevaluation 1ST: Unchanged Patient Education/Counseling: Diagnosis, Treatment Family Education/Counseling: No Family Present Comments Patient presented with the above HPI.---cough---workup was initiated. patient was found with the above mentioned diagnosis. the following medications were ordered: please refer to order lists of meds and tests obtained by myself Dr. Payne. Patient ED course and VS have been stabilized. Patient has been reassessed in the ED and remained in a stable condition. Pertinent incidental findings were discussed with the patient and/or family. Patient/family voices understanding and is agreeable with plan. Patient has been observed in the ED adequate length of time to insure improvement/stability. Escalation of care considered: Consideration of escalation to observation or admission Patient was found with a hypoxemia 89% at room air. Patient was placed on supplemental oxygen. Patient was ADMITTED to the medicine team for further evaluation and treatment of their presentation. All the reports of any imaging studies that were ordered by myself were reviewed by myself. Departure 1 Departure Time of Disposition: 20:00 Impression: Primary Impression: Hypoxemia Additional Impression: Cough Disposition: ADMITTED INPATIENT Admit to: Tele Condition: Guarded Discharged With: Self Critical Care Note Critical Care Time?: Yes (35 min-critical care time only) I personally scribed for ERIN PAYNE DO ([email or web address]) on 09/04/24 at 18:06. Electronically submitted by Abel Collier ([email or web address]). I personally scribed for ERIN PAYNE DO ([email or web address]) on 09/04/24 at 18:45. Electronically submitted by Abel Collier ([email or web address]). ERIN PAYNE DO Sep 04, 2024 18:06
[2024-09-04 18:26] LABS: Basophils # (auto) 0.1 10 ^3/uL (0-0.2); Basophils % (auto) 0.9 % (0.0-2.0); Eosinophils # (auto) 0 10 ^3/uL (0-0.8); Eosinophils % (auto) 0.7 % (0.0-7.0); Hematocrit 41.9 % (41.0-53.0); Hemoglobin 14.5 g/dL (13.5-17.5); Lymphocytes # (auto) 1.1 10 ^3/uL (0.4-5.4); Lymphocytes % (auto) 16.2 % (10.0-50.0); Mean Corpuscular Hemoglobin 31.9 pg (28.0-32.0); Mean Corpuscular Hgb Conc. 34.5 g/dL (32.0-36.0); Mean Corpuscular Volume 92.5 fL (80.0-100.0); Monocytes # (auto) 0.6 10 ^3/uL (0-1.3); Monocytes % (auto) 8.6 % (0.0-12.0); Neutrophils # (auto) 5.1 10 ^3/uL (1.6-8.6); Neutrophils % (auto) 73.6 % (37.0-80.0); Nucleated Red Blood Cells % 0.2 %; Platelet Count (auto) 158 10^3/uL (140-450); Red Blood Cells 4.54 10^6/uL (4.5-5.90); Red Cell Distribution Width 14.6 % (11.8-14.3)
[2024-09-04 18:30] VITALS: PULSE 95; RESP 16; O2SAT 95
[2024-09-04 18:32] LABS: COVID19 ANTIGEN SOFIA FIA NEGATIVE (NEGATIVE); Rapid Influenza A Negative (Negative); Rapid Influenza B Negative (Negative)
[2024-09-04 18:38] LABS: Alanine Aminotransferase 15 U/L (7-40); Albumin 4.8 g/dL (3.2-4.8); Alkaline Phosphatase 100 U/L (46-116); Anion Gap 13 (5-15); Aspartate Aminotransferase 34 U/L (13-40); BUN/Creatinine Ratio 14.9 (10.0-20.0); Bilirubin, Total 0.7 mg/dL (0.2-1.0); Blood Urea Nitrogen 17 mg/dL (9-23); Calcium 9.7 mg/dL (8.7-10.4); Carbon Dioxide 22 mmol/L (20-31); Chloride 102 mmol/L (98-107); Potassium 3.9 mmol/L (3.5-5.1); Sodium 137 mmol/L (136-145); Total Protein 7.2 g/dL (5.7-8.2)
--- NOTE | 2024-09-04 18:41 | DVH ---
CHEST RADIOGRAPH Indication: cough Technique: Single frontal view of the chest was obtained Comparison: None FINDINGS: Lines and Tubes: None Lungs: No focal consolidation. Pleura: No effusion. No pneumothorax. Cardiomediastinal contours: Cardiac size upper limits of normal Bones: No acute osseous abnormality. IMPRESSION: 1. Cardiac size is at the upper limits of normal. 2. There are no prior studies for comparison
[2024-09-04 18:42] LABS: Glucose 152 mg/dL (74-106)
[2024-09-04 19:29] VITALS: PULSE 98; RESP 20; O2SAT 95
[2024-09-04] MEDS ORDERED: ONDANSETRON HCL 4 MG/2 ML VIAL IV PRN (21:00)
[2024-09-04] MEDS ORDERED: HYDROcodone-ACET 5/325MG TAB PO PRN (21:00)
[2024-09-04] MEDS ORDERED: DOCUSATE SOD 100 MG CAP PO PRN (21:00)
[2024-09-04] MEDS ORDERED: hydrALAZINE HCL 20 MG/ML VL IV PRN (21:00)
[2024-09-04] MEDS: SODIUM CHLORIDE 0.9% 1,000 ML IV SCH (21:16)
[2024-09-04] MEDS: ATORVASTATIN 20 MG TAB PO SCH (21:55)
--- NOTE | 2024-09-04 21:59 | DVHHP2 ---
History of Present Illness Reason for Visit: Hypoxemia History of Present Illness The patient is a 79-year-old male with past medical history of hyperlipidemia and hypertension who presented to [facility] ED with complaint of cough for the past 4 days. Patient reports symptoms progressively get worse with productive cough, hypoxemia, O2 saturation at 89% on room air, getting worse that prompted this visit. Patient was seen and evaluated in the ED, laboratory data shows WBC 7.0, platelets 158, sodium 137, potassium 3.9, BUN 17, creatinine 1.14, GFR 66, glucose 152, BNP 29.70, troponin 8, D-dimer 0.43, blood pressure 135/74, heart rate 98, temperature 102.1 F trending down to 99.0 F, O2 sat uration 95% on oxygen. Patient was placed on oxygen 2 liter/minutes via nasal cannula, please see medication orders section in the computer. On my assessment, patient denied chest pain, no headache, no dizziness, no diaphoresis, no abdominal pain, no diarrhea, no nausea, no vomiting, no fever, no chills. Patient was admitted for further evaluation and medical management. Past Medical History HTN, HLD Past Surgical History Cholecystectomy, Prostate Surgery Family History Reviewed, noncontributory to the management of this case. Past Social History The patient lives at home, denies smoking, alcohol or illicit drugs abuse. Review of Systems Constitutional: Yes: Weakness; No: Fever, Chills, Sweats, Malaise, Other Eyes: No: Pain, Vision change, Conjunctivae inflammation, Eyelid inflammation, Other, Redness ENT: No: Ear pain, Ear discharge, Nose pain, Nose discharge, Nose congestion, Mouth pain, Mouth swelling, Throat pain, Throat swelling, Other Respiratory: Cough, Shortness of breath; No: Dry, SOB with excertion, Wheezing, Hemoptysis, Pleuritic Pain, Sputum, Wheezing, Other Cardiovascular: No: Chest Pain, Palpitations, Orthopnea, Paroxysmal Noc. Dyspnea, Edema, Lt Headedness, Other Gastrointestinal: No: Nausea, Vomiting, Abdominal Pain, Diarrhea, Constipation, Melena, Hematochezia, Other Genitourinary: No Dysuria, No Frequency, No Incontinence, No Hematuria, No Retention, No Other Musculoskeletal: No: other, neck pain, shoulder pain, arm pain, back pain, hand pain, leg pain, foot pain Skin: No: Rash, Lesions, Jaundice, Bruising, Other Neurological: No: Weakness, Numbness, Incoordination, Change in speech, Confusion, Seizures, Other Allergies: Coded Allergies: NO KNOWN ALLERGIES (Unverified , 08/07/23) Medications Current Medications Medications Dose Ordered Sig/Jessica Route Start Time Stop Time Status Last Admin Dose Admin Hydralazine HCl 10 mg Q6HP PRN IV 09/04/24 21:00 Atorvastatin Calcium 20 mg HS PO 09/04/24 22:00 09/04/24 21:55 20 MG Nifedipine 60 mg DAILY PO 09/05/24 10:00 Guaifenesin/ Dextromethorphan 10 ml Q4HP PRN PO 09/04/24 21:00 Sodium Chloride 1,000 ml @ 60 mls/hr [id number] IV 09/04/24 21:00 09/04/24 21:16 60 MLS/HR Acetaminophen/ Hydrocodone Bitart 1 tab Q4HP PRN PO 09/04/24 21:00 Ondansetron HCl 4 mg Q4HP PRN IV 09/04/24 21:00 Docusate Sodium 100 mg BIDPRN PRN PO 09/04/24 21:00 Acetaminophen 650 mg Q6HP PRN PO 09/04/24 21:00 Exam Vital Signs Vital Signs Date Time Temp Pulse Resp B/P (MAP) Pulse Ox O2 Delivery O2 Flow Rate FiO2 09/04/24 19:29 98.5 98 20 135/74 (94) 95 98.5 09/04/24 19:29 Nasal Cannula* 2 28 General Appearance: Alert, Oriented X3, Cooperative, No acute distress HEENT: Atraumatic, PERRLA, EOMI, Mucous membr. moist/pink Respiratory: Clear to auscultation, Normal air movement Cardiovascular: Regular rate, Normal S1, Normal S2, No murmurs Abdominal: Normal bowel sounds, Soft, No tenderness, No hepatospenomegaly, No masses Extremities: No clubbing, No cyanosis, No edema, Normal pulses, No tenderness/swelling Skin: No rashes, No breakdown, No significant lesion Neuro: Normal speech, Normal tone, Sensation intact, Cranial nerves 3-12 NL, Reflexes 2+, Other (Generalized weakness) Psych/Mental Status: Mental status NL, Mood NL Labs/Xrays Labs Test 3/22/25 20:57 09/04/24 17:58 09/04/24 17:56 Range/Units Troponin I High Sensitivity 8 </=54 ng/L Influenza Type A Antigen Negative Negative Influenza Type B Antigen Negative Negative SARS-CoV-2 Antigen (Rapid) Negative NEGATIVE White Blood Count 7.0 4.4-10.8 10^3/uL Red Blood Count 4.54 4.5-5.90 10^6/uL Hemoglobin 14.5 13.5-17.5 g/dL Hematocrit 41.9 41.0-53.0 % Mean Corpuscular Volume 92.5 80.0-100.0 fL Mean Corpuscular Hemoglobin 31.9 28.0-32.0 pg Mean Corpuscular Hemoglobin Concent 34.5 32.0-36.0 g/dL Red Cell Distribution Width 14.6 H 11.8-14.3 % Platelet Count 158 140-450 10^3/uL Mean Platelet Volume 9.7 6.9-10.8 fL Neutrophils (%) (Auto) 73.6 37.0-80.0 % Lymphocytes (%) (Auto) 16.2 10.0-50.0 % Monocytes (%) (Auto) 8.6 0.0-12.0 % Eosinophils (%) (Auto) 0.7 0.0-7.0 % Basophils (%) (Auto) 0.9 0.0-2.0 % Neutrophils # (Auto) 5.1 1.6-8.6 10 ^3/uL Lymphocytes # (Auto) 1.1 0.4-5.4 10 ^3/uL Monocytes # (Auto) 0.6 0-1.3 10 ^3/uL Eosinophils # (Auto) 0 0-0.8 10 ^3/uL Basophils # (Auto) 0.1 0-0.2 10 ^3/uL Nucleated Red Blood Cells 0.2 % D-Dimer, Quantitative 0.43 0.0-0.49 mg/L FEU Sodium Level 137 136-145 mmol/L Potassium Level 3.9 3.5-5.1 mmol/L Chloride Level 102 98-107 mmol/L Carbon Dioxide Level 22 20-31 mmol/L Anion Gap 13 5-15 Blood Urea Nitrogen 17 9-23 mg/dL Creatinine 1.14 0.700-1.30 mg/dL Glomerular Filtration Rate Calc 66 >90 mL/min BUN/Creatinine Ratio 14.9 10.0-20.0 Serum Glucose 152 H 74-106 mg/dL Lactic Acid Level 1.9 0.4-2.0 mmol/L Calcium Level 9.7 8.7-10.4 mg/dL Total Bilirubin 0.7 0.2-1.0 mg/dL Aspartate Amino Transferase (AST) 34 13-40 U/L Alanine Aminotransferase (ALT) 15 7-40 U/L Alkaline Phosphatase 100 46-116 U/L B-Type Natriuretic Peptide 29.70 0-100 pg/mL Total Protein 7.2 5.7-8.2 g/dL Albumin 4.8 3.2-4.8 g/dL PATIENT: MORGAN FREEDCT: [id number] UNIT: [id number] : 1945 LOC: ER ROOM / BED: / AGE / SEX: 79 / M ADM STATUS: REG ER SERVICE 1740 ORDERING PHYSICIAN: ERIN PAYNE DO PROCEDURE(s): CXRP - CHEST PORTABLE REASON: cough ORDER NUMBER(s): [id number], ACCESSION NUMBER(s): [id number] CHEST RADIOGRAPH Indication: cough Technique: Single frontal view of the chest was obtained Comparison: None FINDINGS: Lines and Tubes: None Lungs: No focal consolidation. Pleura: No effusion. No pneumothorax. Cardiomediastinal contours: Cardiac size upper limits of normal Bones: No acute osseous abnormality. IMPRESSION: 1. Cardiac size is at the upper limits of normal. 2. There are no prior studies for comparison Assessment/Plan Assessment/Plan Hypoxemia Nonproductive cough Hyperglycemia Fever, unspecified Generalized weakness Plan 1. Admit to telemetry unit 2. Breathing treatment 3. Pain control management 4. Management of fluids and electrolytes 5. Consultation for hospitalist 6. Diagnostic tests chest x-ray 7. DVT prophylaxis-on SCDs 8. Repeat labs CBC, CMP in a.m. 9. Continue with current medical management 10. Treatment plan discussed with patient and RN. Patient verbalized understanding. Plan discussed with: Patient, Other (RN) My Orders Orders - YOSEF MELTON DNP Procedure Category Date Status Time Hydralazine Injection PHA 09/04/24 In Process (Apresoline Inject 21:00 Atorvastatin (Lipitor) PHA 09/04/24 In Process 22:00 Nifedipine Er PHA 09/05/24 In Process (Procardia Xl 10:00 Guaifenesin-Dextromet PHA 09/04/24 In Process Liquid (Robitussin 21:00 Allergies DYLAN 09/04/24 In Process 20:51 Code Status CODE 09/04/24 Transmitted 20:51 Sodium Chloride 0.9% PHA 09/04/24 In Process 21:00 Oxygen Per Hour RT 09/04/24 Transmitted 20:51 Hydrocodone-Acet PHA 09/04/24 In Process 5/325mg Tab ([place] 21:00 Ondansetron Hcl PHA 09/04/24 In Process (Zofran) 21:00 Docusate Sodium PHA 09/04/24 In Process Capsule (Colace 21:00 Complete Blood Count LAB 09/05/24 Verified 04:00 Comprehensive LAB 09/05/24 Verified Metabolic Panel 04:00 Cardiac DIET 09/05/24 Transmitted Diet-2gna,Lofat,Lochol Breakfast Condition: Serious DYLAN 09/04/24 In Process 20:51 Acetaminophen Tablet PHA 09/04/24 In Process (Tylenol Tablet) 21:00 Bedrest With Bathroom DYLAN 09/04/24 In Process Privileg 20:51 Sequential DYLAN 09/04/24 In Process Compression Device Problem List: (1) Hypoxemia (2) Nonproductive cough (3) Hyperglycemia (4) Fever, unspecified (5) Generalized weakness Date of Service: Sep 04, 2024 Billing Provider: YOSEF MELTON DNP Common Visit Codes: [id number] INP/OBS CARE (HIGH) YOSEF MELTON DNP Sep 04, 2024 21:59
[2024-09-04] MEDS ORDERED: MORPHINE SULFATE INJ 2 MG/ml SYRG IV PRN (22:00)
[2024-09-04] MEDS ORDERED: NITROGLYCERIN 0.4 MG SL TAB SL PRN (22:00)
[2024-09-04] MEDS: ACETAMINOPHEN 325 MG TAB PO PRN (23:02)
[2024-09-05] VITALS (10 sets, daily range): BP systolic 115–137; BP diastolic 63–76; PULSE 61–98; RESP 16–19; TEMP 98.4–101.3; O2SAT 91–100
[2024-09-05] MEDS ORDERED: IBUPROFEN 600 MG TAB PO PRN
[2024-09-05] MEDS: IBUPROFEN 600 MG TAB PO ONE (00:01)
[2024-09-05] MEDS: cefTRIAXone 1GM/50ML D5W 50 ML IV ONE (00:51)
[2024-09-05] MEDS: guaiFENesin-DM 100/10mg/5ml SYR PO PRN (00:59)
[2024-09-05 06:14] LABS: Basophils # (auto) 0 10 ^3/uL (0-0.2); Basophils % (auto) 0.7 % (0.0-2.0); Eosinophils # (auto) 0.1 10 ^3/uL (0-0.8); Eosinophils % (auto) 1.6 % (0.0-7.0); Hematocrit 40.1 % (41.0-53.0); Hemoglobin 13.6 g/dL (13.5-17.5); Mean Corpuscular Hemoglobin 31.4 pg (28.0-32.0); Mean Corpuscular Hgb Conc. 34.1 g/dL (32.0-36.0); Mean Corpuscular Volume 92.2 fL (80.0-100.0); Monocytes # (auto) 0.4 10 ^3/uL (0-1.3); Monocytes % (auto) 7.3 % (0.0-12.0); Neutrophils # (auto) 4.2 10 ^3/uL (1.6-8.6); Neutrophils % (auto) 73.4 % (37.0-80.0); Platelet Count (auto) 147 10^3/uL (140-450); Red Blood Cells 4.35 10^6/uL (4.5-5.90); Red Cell Distribution Width 14.5 % (11.8-14.3); White Blood Cell 5.7 10^3/uL (4.4-10.8)
[2024-09-05 06:30] LABS: Alanine Aminotransferase 11 U/L (7-40); Albumin 4.3 g/dL (3.2-4.8); Alkaline Phosphatase 87 U/L (46-116); Anion Gap 12 (5-15); Aspartate Aminotransferase 27 U/L (13-40); BUN/Creatinine Ratio 13.9 (10.0-20.0); Blood Urea Nitrogen 14 mg/dL (9-23); Calcium 8.7 mg/dL (8.7-10.4); Carbon Dioxide 24 mmol/L (20-31); Chloride 102 mmol/L (98-107); Glucose 101 mg/dL (74-106); Sodium 138 mmol/L (136-145); Total Protein 6.7 g/dL (5.7-8.2)
[2024-09-05 06:31] LABS: Bilirubin, Total 0.7 mg/dL (0.2-1.0)
[2024-09-05 06:33] LABS: Potassium 3.2 mmol/L (3.5-5.1)
[2024-09-05] MEDS: NIFEdipine ER 30 MG TAB PO SCH (09:29)
--- NOTE | 2024-09-05 18:03 | DVHPN2 ---
Reviewed: Care Plan, H&P, Labs, Medications, Previous Orders, Radiology Changes from previous H/P or p: No Changes General: Per HPI Eyes: No Pain, No Vision change, No Conjunctivae inflammation, No Eyelid inflammation, No Other, No Redness ENT: No Ear pain, No Ear discharge, No Nose pain, No Nose discharge, No Nose congestion, No Mouth pain, No Mouth swelling, No Throat pain, No Throat swelling, No Other Cardiovascular: No Chest Pain, No Palpitations, No Orthopnea, No Paroxysmal Noc. Dyspnea, No Edema, No Lt Headedness, No Other Respiratory: Cough; No Dry; Shortness of breath; No SOB with excertion, No Wheezing, No Hemoptysis, No Pleuritic Pain, No Sputum, No Other Gastrointestinal: No Nausea, No Vomiting, No Abdominal Pain, No Diarrhea, No Constipation, No Melena, No Hematochezia, No Other Genitourinary: No Dysuria, No Frequency, No Incontinence, No Hematuria, No Retention, No Other Musculoskeletal: No other, No neck pain, No shoulder pain, No arm pain, No back pain, No hand pain, No leg pain, No foot pain Skin: No Rash, No Lesions, No Jaundice, No Bruising, No Other Objective Vitals Vital Signs Date Time Temp Pulse Resp B/P (MAP) Pulse Ox O2 Delivery O2 Flow Rate FiO2 09/05/24 17:00 101.3 97 16 129/74 (92) 95 101.3 09/05/24 08:00 Room Air* 0 21 Intake/Output Intake and Output 09/05/24 07:00 Intake Total 480 ml Balance 480 ml Intake Oral 300 ml IV Total 180 ml General Appearance: Alert, Oriented X3, Cooperative HEENT: Atraumatic Lungs: Clear to auscultation Cardiovascular: Regular rate, Normal S1, Normal S2 Abdomen: Normal bowel sounds, Soft Medications Current Medications Medications Dose Ordered Sig/Jessica Route Start Time Stop Time Status Last Admin Dose Admin Hydralazine HCl 10 mg Q6HP PRN IV 09/04/24 21:00 Atorvastatin Calcium 20 mg HS PO 09/04/24 22:00 09/04/24 21:55 20 MG Nifedipine 60 mg DAILY PO 09/05/24 10:00 09/05/24 09:29 60 MG Guaifenesin/ Dextromethorphan 10 ml Q4HP PRN PO 09/04/24 21:00 09/05/24 16:40 10 ML Sodium Chloride 1,000 ml @ 60 mls/hr [id number] IV 09/04/24 21:00 09/04/24 21:16 60 MLS/HR Acetaminophen/ Hydrocodone Bitart 1 tab Q4HP PRN PO 09/04/24 21:00 Ondansetron HCl 4 mg Q4HP PRN IV 09/04/24 21:00 Docusate Sodium 100 mg BIDPRN PRN PO 09/04/24 21:00 Acetaminophen 650 mg Q6HP PRN PO 09/04/24 21:00 09/05/24 16:41 650 MG Nitroglycerin 0.4 mg Q5MINP PRN SL 09/04/24 22:00 Morphine Sulfate 2 mg Q30M PRN IV 09/04/24 22:00 Ceftriaxone Sodium 50 ml @ 100 mls/hr DAILY@0000 IV 09/06/24 00:00 Ibuprofen 600 mg Q6HP PRN PO 09/05/24 00:00 Laboratory Results Laboratory Tests 09/05/24 05:50 Chemistry Test 09/05/24 05:50 Albumin 4.3 g/dL (3.2-4.8) Calcium Level 8.7 mg/dL (8.7-10.4) Total Protein 6.7 g/dL (5.7-8.2) LFT Test 09/05/24 05:50 Alanine Aminotransferase (ALT) 11 U/L (7-40) Alkaline Phosphatase 87 U/L (46-116) Aspartate Amino Transferase (AST) 27 U/L (13-40) Total Bilirubin 0.7 mg/dL (0.2-1.0) Microbiology Microbiology Date/Time Source Procedure Growth Status 09/05/24 00:05 Blood Blood Culture - Preliminary Resulted Labs and/or images reviewed: Labs reviewed by me, Image(s) reviewed by me Assessment/Plan Assessment/Plan The patient is a 79-year-old male with past medical history of hyperlipidemia and hypertension who presented to [facility] ED with complaint of cough for the past 4 days. Patient reports symptoms progressively get worse with productive cough, hypoxemia, O2 saturation at 89% on room air, getting worse that prompted this visit. Patient was seen and evaluated in the ED, laboratory data shows WBC 7.0, platelets 158, sodium 137, potassium 3.9, BUN 17, creatinine 1.14, GFR 66, glucose 152, BNP 29.70, troponin 8, D-dimer 0.43, blood pressure 135/74, heart rate 98, temperature 102.1 F trending down to 99.0 F, O2 saturation 95% on oxygen. Patient was placed on oxygen 2 liter/minutes via nasal cannula, please see medication orders section in the computer. On my assessment, patient denied chest pain, no headache, no dizziness, no diaphoresis, no abdominal pain, no diarrhea, no nausea, no vomiting, no fever, no chills. Patient was admitted for further evaluation and medical management. Hypoxemia due to suspected PNA suspected PNA (fever, cough, hypoxia) HTN Nonproductive cough Hyperglycemia Fever, unspecified Generalized weakness 09/05/24: remains on IV Abx. symptoms improving if continues to improve, can d/c in 24-48 hours Plan discussed with: Patient Date of Service: Sep 05, 2024 Billing Provider: TAMELA SHOOK DO Common Visit Codes: [id number] INP/OBS CARE(HIGH) TAMELA SHOOK DO Sep 05, 2024 18:03
[2024-09-05] MEDS: cefTRIAXone 1GM/50ML D5W 50 ML IV SCH (23:44)
[2024-09-06] VITALS (10 sets, daily range): BP systolic 97–131; BP diastolic 68–80; PULSE 65–97; RESP 16–20; TEMP 97.9–99.8; O2SAT 92–99
--- NOTE | 2024-09-06 10:08 | ECG ---
[facility] Test Date: 2024-09-04 Test Time: 17:51:06 Pat Name: ERIC HOPKINS Department: ER Room: 0221 Gender: M Jawbone Breaker: JUANI : 1945 Requested By: ERIN PAYNE Order Number: [id number] Reading MD: Kenny Puri Measurements Intervals [place] Rate: 92 P: 49 LA: 142 QRS: -1 QRSD: 81 T: 33 QT: 342 QTc: 424 Interpretive Statements Sinus rhythm Low voltage, precordial leads Electronically Signed On 09-09-2024 13:15:56 PDT by Kenny Puri Please click the below link to view image of tracing.
[2024-09-06 10:48] LABS: Hepatitis B Surface Antigen Negative (Negative); Hepatitis C Antibody Negative (Negative)
[2024-09-06 11:40] LABS: Basophils # (auto) 0 10 ^3/uL (0-0.2); Basophils % (auto) 0.4 % (0.0-2.0); Eosinophils # (auto) 0 10 ^3/uL (0-0.8); Hematocrit 38.3 % (41.0-53.0); Lymphocytes # (auto) 1.2 10 ^3/uL (0.4-5.4); Lymphocytes % (auto) 25.7 % (10.0-50.0); Mean Corpuscular Hemoglobin 30.8 pg (28.0-32.0); Mean Corpuscular Hgb Conc. 33.9 g/dL (32.0-36.0); Mean Corpuscular Volume 91.1 fL (80.0-100.0); Monocytes # (auto) 0.5 10 ^3/uL (0-1.3); Monocytes % (auto) 9.7 % (0.0-12.0); Neutrophils % (auto) 63.2 % (37.0-80.0); Nucleated Red Blood Cells % 0.1 %; Platelet Count (auto) 161 10^3/uL (140-450); Red Cell Distribution Width 14.3 % (11.8-14.3); White Blood Cell 4.7 10^3/uL (4.4-10.8)
[2024-09-06 11:48] LABS: Alanine Aminotransferase 10 U/L (7-40); Alkaline Phosphatase 78 U/L (46-116); Anion Gap 9 (5-15); Aspartate Aminotransferase 32 U/L (13-40); Blood Urea Nitrogen 10 mg/dL (9-23); Carbon Dioxide 26 mmol/L (20-31); Chloride 102 mmol/L (98-107); Magnesium 2.1 mg/dL (1.6-2.6); Sodium 137 mmol/L (136-145); Total Protein 6.4 g/dL (5.7-8.2)
[2024-09-06 11:49] LABS: Bilirubin, Total 0.5 mg/dL (0.2-1.0)
[2024-09-06 11:50] LABS: Calcium 8.7 mg/dL (8.7-10.4); Glucose 118 mg/dL (74-106); Potassium 3.2 mmol/L (3.5-5.1)
--- NOTE | 2024-09-06 11:50 | DVHSR ---
APPROVED REPORT EXAM: Two-dimensional and M-mode echocardiogram with Doppler and color Doppler. Blood Pressure: 114/71 mmHg INDICATION Chest Pain RISK FACTORS Height: 50, Weight: 129 DIMENSIONS LVDd4.5 (3.8-5.7cm)LA (2D)4.2 (1.9-4.0cm)Aortic Root3.6 (2.0-3.7cm) LVDs3.4 (2.5-4.0cm)LA (MM) (1.9-4.0cm)Aortic Cusp Exc1.6 (1.5-2.0cm) EF (%) 50.0 (55-70%)Rt. Atrium3.4 (1.9-4.0cm)Asc. Aorta cm IVSd1.1 (0.7-1.1cm)RV (D) (1.8-2.4cm) PWd1.1 (0.7-1.1cm) Mitral Valve MitralMitral Stenosis E wave0.60m/sMV Mean GR.mmHg A wave0.94m/sMV Peak GR.mmHg E/A ratio0.62D MVAcm2 DECEL [id number] 1/2 [id number] IVRTmsDop MVA4.35cm2 Aortic Valve Aortic ValveAortic Stenosis V10.90m/Carol Mean GR.5mmHg V21.58m/Carol Peak GR.10mmHg LVOT Diameter2.0 (1.8-2.4cm)Doppler AVA1.79cm2 Pulmonic Valve V20.80m/s Tricuspid Valve TR Velocity2.77m/s [id number] Other Information Technically limited study due to patient position. Conclusion lvef 55% by visual estimate mild concentricl LVH grade 1 diastolic dysfunction normal rv function left atrium enlarged mild no severe valve abnormalities noted small pericardial effusion adjacent to RV, no hemodynamic disturbance normal IVC size
--- NOTE | 2024-09-06 13:36 | DVH ---
EXAM: CT CHEST WITHOUT CONTRAST History: Blood in Sputum Comparison Study: None available TECHNIQUE: Multidetector CT of the chest was performed. Imaging was performed without IV contrast. Ax ial, coronal, and sagittal multiplanar reformats were obtained from the axial data set by the technol ogist. Radiation Dose : CTDI vol 6.64 mGy, DLP 251.91 mGy*cm. Findings: Lungs: Bilateral lower lobe clustered nodular consolidations. Pleura: Unremarkable Heart/Great vessels: No cardiomegaly. Small to moderate pericardial effusion. Mediastinum: Mildly prominent mediastinal nodes Soft tissues/Bones: Mild multilevel degenerative changes of the thoracic spine. The partially visualized upper abdomen is within normal limits. Impression: 1. Bilateral lower lobe clustered nodular consolidations favoring infectious/inflammatory etiology. 2. Reactive mediastinal nodes. 3. Small to moderate pericardial effusion.
[2024-09-06] MEDS: POTASSIUM CHL 20 Meq TABLET PO SCH ×2 (13:53→17:30)
[2024-09-06 16:00] LABS: Urine Bacteria None Seen /hpf (None Seen)
[2024-09-06 16:30] LABS: Urine Blood TRACE /uL (Negative); Urine Clarity Clear (Clear); Urine Color Colorless (Yellow); Urine Protein, UAD Negative (Negative); Urine Specific Gravity 1.005 (1.001-1.035); Urine Squamous Epithelial Cell FEW /hpf (<5); Urine Urobilinogen Normal (Negative)
--- NOTE | 2024-09-06 16:54 | DVHPNRES ---
Progress Note Date Seen: Sep 06, 2024 Resident Creating Document: ABHISHEK QUEZADA RESIDENT Medical Necessity Reason Pt with a Central, PICC or Fol: No Subjective Review of Systems This is a 79-year-old male who presented to [facility] ED with complaint of cough for the past 4 days. Past Medical History HTN, HLD Past Surgical History Cholecystectomy, Prostate Surgery Family History Reviewed, noncontributory to the management of this case. Past Social History The patient lives at home, denies smoking, alcohol or illicit drugs abuse. Patient reports symptoms progressively get worse with productive cough, hypoxemia, O2 saturation at 89% on room air, getting worse that prompted this visit. Patient was seen and evaluated in the ED, laboratory data shows WBC 7.0, platelets 158, sodium 137, potassium 3.9, BUN 17, creatinine 1.14, GFR 66, glucose 152, BNP 29.70, troponin 8, D-dimer 0.43, blood pressure 135/74, heart rate 98, temperature 102.1 F trending down to 99.0 F, O2 saturation 95% on oxygen. Patient was placed on oxygen 2 liter/minutes via nasal cannula, please see medication orders section in the computer. On my assessment, patient denied chest pain, no headache, no dizziness, no diaphoresis, no abdominal pain, no diarrhea, no nausea, no vomiting, no fever, no chills. Patient was admitted for further evaluation and medical management. On my initial assessment, patient stated feeling mildly better than on admission, he continued to complain of mild shortness of breath, significant productive cough, he denied any chest pain, dizziness, lightheadedness, abdominal pain, nausea, vomiting, he is currently tolerating diet. Objective vital signs Vital Sign Date Time Temp Pulse Resp B/P (MAP) Pulse Ox O2 Delivery O2 Flow Rate FiO2 09/06/24 16:42 98.8 94 17 116/69 (85) 94 98.8 09/06/24 08:00 Nasal Cannula* 2 28 Total Intake and Output 09/05/24 09/05/24 09/06/24 15:00 23:00 07:00 Intake Total 1040 ml 970 ml Output Total 540 ml 700 ml Balance 500 ml 270 ml medications Current Medications Medications Dose Ordered Sig/Jessica Route Start Time Stop Time Status Last Admin Dose Admin Hydralazine HCl 10 mg Q6HP PRN IV 09/04/24 21:00 Atorvastatin Calcium 20 mg HS PO 09/04/24 22:00 09/05/24 20:59 20 MG Nifedipine 60 mg DAILY PO 09/05/24 10:00 09/06/24 09:14 60 MG Guaifenesin/ Dextromethorphan 10 ml Q4HP PRN PO 09/04/24 21:00 09/06/24 14:11 10 ML Acetaminophen/ Hydrocodone Bitart 1 tab Q4HP PRN PO 09/04/24 21:00 Ondansetron HCl 4 mg Q4HP PRN IV 09/04/24 21:00 Docusate Sodium 100 mg BIDPRN PRN PO 09/04/24 21:00 Acetaminophen 650 mg Q6HP PRN PO 09/04/24 21:00 09/05/24 16:41 650 MG Nitroglycerin 0.4 mg Q5MINP PRN SL 09/04/24 22:00 Morphine Sulfate 2 mg Q30M PRN IV 09/04/24 22:00 Ceftriaxone Sodium 50 ml @ 100 mls/hr DAILY@0000 IV 09/06/24 00:00 09/05/24 23:44 100 MLS/HR Ibuprofen 600 mg Q6HP PRN PO 09/05/24 00:00 Examination General: Awake, alert, comfortable appearing, in no acute distress. HEENT: Head is normocephalic and atraumatic. Pupils are equal, round, and reactive to light. Extraocular muscles are intact. No nasal discharge. No facial trauma. Intraoral exam shows moist mucous membranes with no tonsillar enlargement or exudate. Neck: Supple with no cervical lymphadenopathy No meningismus. No goiter. Heart: Regular rate without murmur, rub, or gallop. Lungs: Scattered lower lung crackles Abdomen: No external sign of injury. Bowel sounds are present. Abdomen is soft, nontender. No rebound, no guarding, no rigidity. There are no palpable masses. There is no flank pain on exam. Extremities: Strong peripheral pulses. There is no clubbing, no cyanosis, and no edema. Skin: No rash. Neurologic: Cranial nerves II-XII intact without motor, sensory, or cerebellar deficit, no asterixis. laboratory and microbiology Laboratory Tests 09/06/24 10:51 Test 09/06/24 10:51 Range/Units Serum Glucose 118 H 74-106 mg/dL Microbiology Date/Time Source Procedure Growth Status 09/05/24 00:08 Blood Blood Culture - Preliminary NO GROWTH AFTER 24 HOURS OF INCUBATION. Resulted Labs and/or images reviewed: Labs reviewed by me, Image(s) reviewed by me Problem List/Assessment/Plan Problem List/Assessment/Plan Pneumonia, Gram-positive versus Gram-negative, atypical Acute hypoxic respiratory failure Sepsis due to above Mild pericardial effusion Hypokalemia Anemia, mild Hypertension Plan: Zosyn IV Azithromycin IV DuoNebs Pending sputum culture, blood culture, urine culture, MRSA CT chest reviewed, bilateral lower lung consolidations Monitor and replete electrolytes Continue home meds, nifedipine, lipitor echo shows ef 55%, rsvp 34, mild pericardial effusion Labs in the am Goals of care were discussed for 30 minutes. Full code Case was discussed with Dr. Low Plan discussed with: Patient, Other (RN) My Orders My Orders Orders - ABHISHEK QUEZADA Procedure Category Date Status Time Blood Culture LAWSON 09/06/24 In Process 10:23 Respiratory Culture LAWSON 09/06/24 In Process W/ Gs 10:23 Urine Bacterial LAWSON 09/06/24 In Process Culture 10:23 Echo 2d Mode Cardiac US 09/06/24 Resulted DOP 10:23 Transfer Orders XFER 09/06/24 Transmitted 12:10 Discontinue Tele DYLAN 09/06/24 In Process 12:[address] 09/06/24 Resulted 12:35 Date of Service: Sep 06, 2024 Billing Provider: CORINNE LOW MD Common Visit Codes: 41184-[id number] INP/OBS CARE(HIGH) Secondary Visit Codes: 33194-[id number] CARE PLAN 30 MINUTES ABHISHEK QUEZADA RESIDENT Sep 06, 2024 16:54 CORINNE LOW MD Sep 07, 2024 14:54
[2024-09-06] MEDS: PIPERACILLIN-TAZOB 3.375GM 100 ML IV ONE (17:34)
[2024-09-06] MEDS: IPRATROPIUM BROM 0.5 MG/2.5ML INH SOL NEB SCH (19:26)
[2024-09-06] MEDS: LEVALBUTEROL HCL 1.25 MG/3 ML NEB NEB SCH (19:26)
[2024-09-06] MEDS: AZITHROMYCIN 500MG/ 250ML 250 ML IV ONE (22:31)
[2024-09-07] VITALS (10 sets, daily range): BP systolic 111–121; BP diastolic 58–77; PULSE 69–89; RESP 17–20; TEMP 97.8–98.5; O2SAT 92–99
[2024-09-07] MEDS: PIPERACILLIN-TAZOB 3.375GM 100 ML IV SCH (02:28)
[2024-09-07 07:55] LABS: Alanine Aminotransferase 12 U/L (7-40); Alkaline Phosphatase 76 U/L (46-116); Anion Gap 12 (5-15); Aspartate Aminotransferase 36 U/L (13-40); BUN/Creatinine Ratio 9.3 (10.0-20.0); Calcium 8.8 mg/dL (8.7-10.4); Carbon Dioxide 24 mmol/L (20-31); Chloride 103 mmol/L (98-107); Glucose 98 mg/dL (74-106); Magnesium 2.1 mg/dL (1.6-2.6); Potassium 3.7 mmol/L (3.5-5.1); Sodium 139 mmol/L (136-145); Total Protein 6.3 g/dL (5.7-8.2)
[2024-09-07 07:56] LABS: Bilirubin, Total 0.7 mg/dL (0.2-1.0)
[2024-09-07 08:00] LABS: Blood Urea Nitrogen 8 mg/dL (9-23)
[2024-09-07 09:50] LABS: Base Excess 0.5 mmol/L (-2.0-3.0)
[2024-09-07] MEDS ORDERED: AZIT-43 PO (10:35)
[2024-09-07] MEDS ORDERED: AUG875T PO (10:35)
[2024-09-07 10:52] LABS: Basophils # (auto) 0 10 ^3/uL (0-0.2); Basophils % (auto) 0.8 % (0.0-2.0); Eosinophils # (auto) 0.3 10 ^3/uL (0-0.8); Eosinophils % (auto) 5.1 % (0.0-7.0); Hematocrit 39.9 % (41.0-53.0); Hemoglobin 13.5 g/dL (13.5-17.5); Lymphocytes # (auto) 0.8 10 ^3/uL (0.4-5.4); Lymphocytes % (auto) 13.7 % (10.0-50.0); Mean Corpuscular Hgb Conc. 33.9 g/dL (32.0-36.0); Mean Corpuscular Volume 91.5 fL (80.0-100.0); Monocytes # (auto) 0.6 10 ^3/uL (0-1.3); Neutrophils # (auto) 3.9 10 ^3/uL (1.6-8.6); Neutrophils % (auto) 70.4 % (37.0-80.0); Nucleated Red Blood Cells % 0.2 %; Platelet Count (auto) 173 10^3/uL (140-450); Red Blood Cells 4.36 10^6/uL (4.5-5.90); Red Cell Distribution Width 14.5 % (11.8-14.3); White Blood Cell 5.6 10^3/uL (4.4-10.8)
--- NOTE | 2024-09-07 10:56 | DVHDSRES ---
Discharge Summary Date of Admission Resident Creating Document: ABHISHEK QUEZADA RESIDENT Sep 04, 2024 at 21:58 Date of Discharge: Sep 07, 2024 Admitting Diagnosis Pneumonia Labs/Diagnostic Data: Laboratory Results Test 09/07/24 10:24 09/07/24 09:34 09/07/24 06:52 09/06/24 15:47 White Blood Count 5.6 10^3/uL (4.4-10.8) Red Blood Count 4.36 10^6/uL (4.5-5.90) Hemoglobin 13.5 g/dL (13.5-17.5) Hematocrit 39.9 % (41.0-53.0) Mean Corpuscular Volume 91.5 fL (80.0-100.0) Mean Corpuscular Hemoglobin 31.0 pg (28.0-32.0) Mean Corpuscular Hemoglobin Concent 33.9 g/dL (32.0-36.0) Red Cell Distribution Width 14.5 % (11.8-14.3) Platelet Count 173 10^3/uL (140-450) Mean Platelet Volume 9.4 fL (6.9-10.8) Neutrophils (%) (Auto) 70.4 % (37.0-80.0) Lymphocytes (%) (Auto) 13.7 % (10.0-50.0) Monocytes (%) (Auto) 10.0 % (0.0-12.0) Eosinophils (%) (Auto) 5.1 % (0.0-7.0) Basophils (%) (Auto) 0.8 % (0.0-2.0) Neutrophils # (Auto) 3.9 10 ^3/uL (1.6-8.6) Lymphocytes # (Auto) 0.8 10 ^3/uL (0.4-5.4) Monocytes # (Auto) 0.6 10 ^3/uL (0-1.3) Eosinophils # (Auto) 0.3 10 ^3/uL (0-0.8) Basophils # (Auto) 0 10 ^3/uL (0-0.2) Nucleated Red Blood Cells 0.2 % Blood Gas Specimen Type Arterial Blood Gas Sample Site Right radial Blood Gas Patient Temperature 37.0 Arterial Blood Date Drawn [id number] Arterial Blood pH 7.485 (7.350-7.450) Arterial Blood Partial Pressure CO2 31.2 mmHg (35.0-48.0) Arterial Blood Partial Pressure O2 56.2 mmHg (83.0-108.0) Arterial Blood HCO3 23.0 mmol/L (21.0-28.0) Arterial Blood Oxygen Saturation 90.2 % (94.0-98.0) Arterial Blood Base Excess 0.5 mmol/L (-2.0-3.0) Arterial Blood Oxyhemoglobin 89.7 % (94.0-98.0) Arterial Blood Carboxyhemoglobin 0.3 % (0.5-1.5) Arterial Blood Methemoglobin 0.2 % (0.0-1.5) Bradley Test Yes Blood Gas Total Hemoglobin 14.50 g/dL (13.5-17.5) Blood Gas Modality Room air FiO2 % 21.0 Sodium Level 139 mmol/L (136-145) Potassium Level 3.7 mmol/L (3.5-5.1) Chloride Level 103 mmol/L (98-107) Carbon Dioxide Level 24 mmol/L (20-31) Anion Gap 12 (5-15) Blood Urea Nitrogen 8 mg/dL (9-23) Creatinine 0.86 mg/dL (0.700-1.30) Glomerular Filtration Rate Calc 89 mL/min (>90) BUN/Creatinine Ratio 9.3 (10.0-20.0) Serum Glucose 98 mg/dL (74-106) Calcium Level 8.8 mg/dL (8.7-10.4) Magnesium Level 2.1 mg/dL (1.6-2.6) Total Bilirubin 0.7 mg/dL (0.2-1.0) Aspartate Amino Transferase (AST) 36 U/L (13-40) Alanine Aminotransferase (ALT) 12 U/L (7-40) Alkaline Phosphatase 76 U/L (46-116) Total Protein 6.3 g/dL (5.7-8.2) Albumin 4.0 g/dL (3.2-4.8) Urine Color Colorless (Yellow) Urine Clarity Clear (Clear) Urine pH 6.0 (5.0-9.0) Urine Specific [place] 1.005 (1.001-1.035) Urine Protein Negative (Negative) Urine Ketones Negative (Negative) Urine Blood Trace /uL (Negative) Urine Nitrite Negative (Negative) Urine Bilirubin Negative (Negative) Urine Urobilinogen Normal mg/dL (Negative) Urine Leukocyte Esterase Negative /uL (Negative) Urine RBC 1 /hpf (0 - 3) Urine Microscopic WBC /HPF (0-3) Urine Squamous Epithelial Cells Few /hpf (<5) Urine Bacteria None seen /hpf (None Seen) Urine Glucose Normal mg/dL (Normal) Test 09/06/24 10:51 09/05/24 05:50 09/04/24 20:57 09/04/24 17:58 Lactic Acid Level 1.2 mmol/L (0.4-2.0) Hepatitis B Surface Antigen Negative (Negative) Hepatitis C Antibody Negative (Negative) Troponin I High Sensitivity 8 ng/L (</=54) Influenza Type A Antigen Negative (Negative) Influenza Type B Antigen Negative (Negative) SARS-CoV-2 Antigen (Rapid) Negative (NEGATIVE) Test 09/04/24 17:56 D-Dimer, Quantitative 0.43 mg/L FEU (0.0-0.49) Hemoglobin A1c 5.5 % A1C (<5.7) B-Type Natriuretic Peptide 29.70 pg/mL (0-100) Other Laboratory Tests 09/07/24 10:24 09/07/24 06:52 Brief Hx & Hospital Course: This is a 79-year-old male who presented to [facility] ED with complaint of cough for the past 4 days. Past Medical History HTN, HLD Past Surgical History Cholecystectomy, Prostate Surgery Family History Reviewed, noncontributory to the management of this case. Past Social History The patient lives at home, denies smoking, alcohol or illicit drugs abuse. Patient reports symptoms progressively get worse with productive cough, hypoxemia, O2 saturation at 89% on room air, getting worse that prompted this visit. Patient was seen and evaluated in the ED, laboratory data shows WBC 7.0, platelets 158, sodium 137, potassium 3.9, BUN 17, creatinine 1.14, GFR 66, glucose 152, BNP 29.70, troponin 8, D-dimer 0.43, blood pressure 135/74, heart rate 98, temperature 102.1 F trending down to 99.0 F, O2 saturation 95% on oxygen. Patient was placed on oxygen 2 liter/minutes via nasal cannula, please see medication orders section in the computer. On my assessment, patient denied chest pain, no headache, no dizziness, no diaphoresis, no abdominal pain, no diarrhea, no nausea, no vomiting, no fever, no chills. Patient was admitted for further evaluation and medical management. On my initial assessment, patient stated feeling mildly better than on admission, he continued to complain of mild shortness of breath, significant productive cough, he denied any chest pain, dizziness, lightheadedness, abdominal pain, nausea, vomiting, he is currently tolerating diet. A CT of the chest revealed bilateral lower lung consolidations. An echo revealed an ejection fraction of 55% SBP of 34 and mild pericardial effusion. Patient stated that he has had significant clinical improvement throughout his hospitalization, cough got mild, no more fevers, chills, he was ambulatory, an ABG on room air after walking the patient was performed, patient did not qualify for home oxygen. He currently states feeling well, denies any significant shortness of breath, chest pain, dizziness, lightheadedness, abdominal pain, nausea, vomiting. Physical examination as below: General: Awake, alert, comfortable appearing, in no acute distress. HEENT: Head is normocephalic and atraumatic. Pupils are equal, round, and reactive to light. Extraocular muscles are intact. No nasal discharge. No facial trauma. Intraoral exam shows moist mucous membranes with no tonsillar enlargement or exudate. Neck: Supple with no cervical lymphadenopathy No meningismus. No goiter. Heart: Regular rate without murmur, rub, or gallop. Lungs: Scattered lower lung crackles Abdomen: No external sign of injury. Bowel sounds are present. Abdomen is soft, nontender. No rebound, no guarding, no rigidity. There are no palpable masses. There is no flank pain on exam. Extremities: Strong peripheral pulses. There is no clubbing, no cyanosis, and no edema. Skin: No rash. Neurologic: Cranial nerves II-XII intact without motor, sensory, or cerebellar deficit, no asterixis. Patient will be discharged home and continue home medications as prescribed. He will continue taking Augmentin 875 mg p.o. b.i.d. for next five days, he will also continue taking azithromycin. Patient will be follow up in the outpatient clinic with Dr. Collazo within 1-2 weeks. Patient verbalized understanding and agree with DC plan, we spent over 30 minute explaining the plan. Case was discussed with Dr. Low Operations or Procedures [facility] [id number] [facility] [id number] Ph: [phone] DIAGNOSTIC IMAGING Diagnostic Imaging Report : [id number] Signed PATIENT: MORGAN FREEDCT: [id number] UNIT: [id number] : 1945 LOC: [facility] AGE / SEX: 79 / M ADM STATUS: ADM IN SERVICE 1023 ORDERING PHYSICIAN: ABHISHEK QUEZADA RESIDENT PROCEDURE(s): ECIDC - ECHO 2D MODE CARDIAC DOP REASON: chest pain ORDER NUMBER(s): [id number], ACCESSION NUMBER(s): [id number] APPROVED REPORT EXAM: Two-dimensional and M-mode echocardiogram with Doppler and color Doppler. Blood Pressure: 114/71 mmHg INDICATION Chest Pain RISK FACTORS Height: 50, Weight: 129 DIMENSIONS LVDd 4.5 (3.8-5.7cm) LA (2D) 4.2 (1.9-4.0cm) Aortic Root 3.6 (2.0- 3.7cm) LVDs 3.4 (2.5-4.0cm) LA (MM) (1.9-4.0cm) Aortic Cusp Exc 1.6 (1.5- 2.0cm) EF (%) 50.0 (55-70%) Rt. Atrium 3.4 (1.9-4.0cm) Asc. Aorta cm IVSd 1.1 (0.7-1.1cm) RV (D) (1.8-2.4cm) PWd 1.1 (0.7-1.1cm) Mitral Valve Mitral Mitral Stenosis E wave 0.60m/s MV Mean GR. mmHg A wave 0.94m/s MV Peak GR. mmHg E/A ratio 0.6 2D MVA cm2 DECEL Time 209ms PRESS 1/2 Time 51ms IVRT ms Dop MVA 4.35cm2 Aortic Valve Aortic Valve Aortic Stenosis V1 0.90m/s AO Mean GR. 5mmHg V2 1.58m/s AO Peak GR. 10mmHg LVOT Diameter 2.0 (1.8-2.4cm) Doppler STELLA 1.79cm2 Pulmonic Valve V2 0.80m/s Tricuspid Valve TR Velocity 2.77m/s RVSP 35mmHg Other Information Technically limited study due to patient position. Conclusion lvef 55% by visual estimate mild concentricl LVH grade 1 diastolic dysfunction normal rv function left atrium enlarged mild no severe valve abnormalities noted small pericardial effusion adjacent to RV, no hemodynamic disturbance normal IVC size SIGNED BY: MU VIRAMONTES MD SIGNED DATE/TIME: 09/06/24 1150 CC: [place] [address] Ph: [phone] DIAGNOSTIC IMAGING Diagnostic Imaging Report : [id number] Signed PATIENT: MORGAN FREEDCT: [id number] UNIT: [id number] : 1945 LOC: ER ROOM / BED: / AGE / SEX: 79 / M ADM STATUS: REG ER SERVICE 174 ORDERING PHYSICIAN: ERIN PAYNE DO PROCEDURE(s): CXRP - CHEST PORTABLE REASON: cough ORDER NUMBER(s): [id number], ACCESSION NUMBER(s): [id number] CHEST RADIOGRAPH Indication: cough Technique: Single frontal view of the chest was obtained Comparison: None FINDINGS: Lines and Tubes: None Lungs: No focal consolidation. Pleura: No effusion. No pneumothorax. Cardiomediastinal contours: Cardiac size upper limits of normal Bones: No acute osseous abnormality. IMPRESSION: 1. Cardiac size is at the upper limits of normal. 2. There are no prior studies for comparison ATED BY: DAVE ANDREW Jr., DO DICTATED DATE/TIME: 09/04/241837 SIGNED BY: DAVE ANDREW Jr., DO SIGNED DATE/TIME: 09/04/241837 CC: [place] [address] Ph: [phone] DIAGNOSTIC IMAGING Diagnostic Imaging Report : [id number] Signed PATIENT: MORGAN FREEDCT: [id number] UNIT: [id number] : 1945 LOC: [facility] ROOM / BED: [facility] / A AGE / SEX: 79 / M ADM STATUS: ADM IN SERVICE 1235 ORDERING PHYSICIAN: ABHISHEK QUEZADA RESIDENT PROCEDURE(s): CX2CT - CHEST WITHOUT CONTRAST REASON: Blood in Sputum ORDER NUMBER(s): [id number], ACCESSION NUMBER(s): [id number] EXAM: CT CHEST WITHOUT CONTRAST History: Blood in Sputum Comparison Study: None available TECHNIQUE: Multidetector CT of the chest was performed. Imaging was performed without IV contrast. Axial, coronal, and sagittal multiplanar reformats were obtained from the axial data set by the technologist. Radiation Dose : CTDI vol 6.64 mGy, DLP 251.91 mGy*cm. Findings: Lungs: Bilateral lower lobe clustered nodular consolidations. Pleura: Unremarkable Heart/Great vessels: No cardiomegaly. Small to moderate pericardial effusion. Mediastinum: Mildly prominent mediastinal nodes Soft tissues/Bones: Mild multilevel degenerative changes of the thoracic spine. The partially visualized upper abdomen is within normal limits. Impression: 1. Bilateral lower lobe clustered nodular consolidations favoring infectious/inflammatory etiology. 2. Reactive mediastinal nodes. 3. Small to moderate pericardial effusion. ATED BY: JAZMIN PETIT DO DICTATED DATE/TIME: 09/06/241333 SIGNED BY: JAZMIN PETIT DO SIGNED DATE/TIME: 09/06/24 1334 CC: Condition at Discharge: Guarded Final Diagnosis/Problems List Pneumonia, Gram-positive versus Gram-negative, atypical Acute hypoxic respiratory failure Sepsis due to above Mild pericardial effusion Hypokalemia Anemia, mild Hypertension Discharge Disposition: Home Discharge Instruct/Medications Diet: Cardiac 2g Na,low cholest Activity: No Restrictions, As Tolerated Follow Up/Referral: fu with pcp in 1-2 weeks Medications: continue meds as prescribed Discharge Statement: "Patient was advised to return to the ER or call 911 if any headaches, dizziness, shortness of breath, chest pain, abdominal pain, bleeding, fevers, or worsening of medical condition. Patient was counseled about treatment plan, medications, possible side effects, patientverbalized understanding. All questions were answered to the best of my ability. This discharge took greater then 30 minutes in planning, reviewing documentation, counseling the patient, and discussing with other team members." ASSESSMENT ASSESSMENT Assessment PNEUMONIA Date of Service: Sep 07, 2024 Billing Provider: CORINNE LOW MD Common Visit Codes: 23481-YVT/OBS DISCH DAY >30min ABHISHEK QUEZADA RESIDENT Sep 07, 2024 10:56 CORINNE LOW MD Sep 07, 2024 15:51
[2024-09-07] MEDS ORDERED: AZITHROMYCIN 500MG/ 250ML 250 ML IV SCH (18:00)
== END 2024-09-07 16:56 | disposition home or self-care (01) | DRG 871 ==
LOC: ER 17:19 → OVERFLOW 21:58 → TELE-CENTR 23:58 → CENTRAL 09-06 15:13
PROVIDERS: ADMIT Internal Medicine; ATTEND Internal Medicine
DX: A41.59 Other Gram-negative sepsis (principal); J15.69 Pneumonia due to other Gram-negative bacteria; J96.01 Acute respiratory failure with hypoxia; J15.9 Unspecified bacterial pneumonia; I31.39 Other pericardial effusion (noninflammatory); R73.9 Hyperglycemia, unspecified; I10 Essential (primary) hypertension; E87.6 Hypokalemia; D64.9 Anemia, unspecified; E78.5 Hyperlipidemia, unspecified; Z90.49 Acquired absence of other specified parts of digestive tract; Z79.899 Other long term (current) drug therapy
CPT/HCPCS: 36415; 36600; 71045; 71250; 80053; 81001; 82805; 83036; 83605; 83735; 83880; 84484; 85025; 85379; 86803; 87040; 87070; 87081; 87086; 87205; 87340; 87426; 87804; 93005; 93306; 94640; 97163; 99291; G0378; J2543

== ENCOUNTER 2025-01-24 08:18 | Outpatient (CLI) | payer OTHER ==
[~2025-01-24 08:18] MED LIST changes: +AUG875T PO; +AZIT-43 PO
[2025-01-24 08:57] LABS: Anion Gap 11 (5-15); Carbon Dioxide 24 mmol/L (20-31); Chloride 106 mmol/L (98-107); Potassium 3.6 mmol/L (3.5-5.1); Sodium 141 mmol/L (136-145)
[2025-01-24 08:59] LABS: Calcium 9.5 mg/dL (8.7-10.4)
[2025-01-24 09:04] LABS: BUN/Creatinine Ratio 13.0 (10.0-20.0); Blood Urea Nitrogen 15 mg/dL (9-23); Glucose 95 mg/dL (74-106)
== END 2025-01-24 17:00 | disposition home or self-care (01) ==
LOC: LAB 08:18
PROVIDERS: ATTEND Internal Medicine
DX: I13.10 Hypertensive heart and chronic kidney disease without heart failure, with stage 1 through stage 4 chronic kidney disease, or unspecified chronic kidney disease (principal); N18.9 Chronic kidney disease, unspecified
CPT/HCPCS: 36415; 80048

== ENCOUNTER 2025-02-10 08:13 | Outpatient (CLI) | payer OTHER ==
[2025-02-10 08:52] LABS: Alkaline Phosphatase 99 U/L (46-116); Anion Gap 7 (5-15); BUN/Creatinine Ratio 13.6 (10.0-20.0); Blood Urea Nitrogen 14 mg/dL (9-23); Calcium 9.4 mg/dL (8.7-10.4); Carbon Dioxide 26 mmol/L (20-31); Chloride 106 mmol/L (98-107); Glucose 97 mg/dL (74-106); Magnesium 2.1 mg/dL (1.6-2.6); Potassium 4.3 mmol/L (3.5-5.1); Sodium 139 mmol/L (136-145); Total Protein 7.7 g/dL (5.7-8.2)
[2025-02-10 08:53] LABS: Bilirubin, Total 0.9 mg/dL (0.2-1.0)
[2025-02-10 08:54] LABS: Alanine Aminotransferase < 9 U/L (7-40); Albumin 4.9 g/dL (3.2-4.8)
[2025-02-10 09:18] LABS: Microalb/Creat Ratio, Urine 138.0
[2025-02-10 10:14] LABS: Uric Acid 5.6 mg/dL (3.7-9.2)
== END 2025-02-10 17:00 | disposition home or self-care (01) ==
LOC: LAB 08:13
PROVIDERS: ATTEND Internal Medicine Nephrology
DX: E11.22 Type 2 diabetes mellitus with diabetic chronic kidney disease (principal); N18.30 Chronic kidney disease, stage 3 unspecified; N39.0 Urinary tract infection, site not specified; E21.3 Hyperparathyroidism, unspecified; R80.9 Proteinuria, unspecified; M10.9 Gout, unspecified; E55.9 Vitamin D deficiency, unspecified; D63.1 Anemia in chronic kidney disease
CPT/HCPCS: 36415; 80053; 82043; 82570; 83735; 83970; 84100; 84550

== ENCOUNTER → 2025-04-15 | Outpatient (CLI) | payer OTHER ==
[2025-04-15 08:36] LABS: Anion Gap 10 (5-15); Carbon Dioxide 26 mmol/L (20-31); Chloride 104 mmol/L (98-107); Potassium 4.0 mmol/L (3.5-5.1); Sodium 140 mmol/L (136-145)
[2025-04-15 08:38] LABS: Calcium 9.1 mg/dL (8.7-10.4)
[2025-04-15 08:42] LABS: BUN/Creatinine Ratio 17.2 (10.0-20.0); Blood Urea Nitrogen 17 mg/dL (9-23); Glucose 89 mg/dL (74-106)
== END | disposition home or self-care (01) ==
LOC: LAB 07:45
PROVIDERS: ATTEND Internal Medicine
DX: I12.9 Hypertensive chronic kidney disease with stage 1 through stage 4 chronic kidney disease, or unspecified chronic kidney disease (principal); N18.2 Chronic kidney disease, stage 2 (mild); E78.5 Hyperlipidemia, unspecified
CPT/HCPCS: 36415; 80048

== ENCOUNTER 2025-05-16 08:30 | Outpatient (CLI) | payer OTHER ==
[2025-05-16 09:36] LABS: Albumin 4.8 g/dL (3.2-4.8); Alkaline Phosphatase 114 U/L (46-116); Anion Gap 10 (5-15); BUN/Creatinine Ratio 13.9 (10.0-20.0); Blood Urea Nitrogen 15 mg/dL (9-23); Calcium 9.9 mg/dL (8.7-10.4); Carbon Dioxide 29 mmol/L (20-31); Chloride 103 mmol/L (98-107); Glucose 106 mg/dL (74-106); Potassium 4.6 mmol/L (3.5-5.1); Sodium 142 mmol/L (136-145); Total Protein 7.9 g/dL (5.7-8.2)
[2025-05-16 09:37] LABS: Bilirubin, Total 0.9 mg/dL (0.2-1.0)
[2025-05-16 09:41] LABS: Alanine Aminotransferase < 9 U/L (7-40)
[2025-05-16 10:02] LABS: Uric Acid 4.8 mg/dL (3.7-9.2)
== END 2025-05-16 17:00 | disposition home or self-care (01) ==
LOC: LAB 08:30
PROVIDERS: ATTEND Internal Medicine
DX: E11.22 Type 2 diabetes mellitus with diabetic chronic kidney disease (principal); N18.30 Chronic kidney disease, stage 3 unspecified; E11.21 Type 2 diabetes mellitus with diabetic nephropathy; E21.3 Hyperparathyroidism, unspecified; E55.9 Vitamin D deficiency, unspecified; M10.9 Gout, unspecified; D63.1 Anemia in chronic kidney disease; N39.0 Urinary tract infection, site not specified; R80.9 Proteinuria, unspecified
CPT/HCPCS: 36415; 80053; 83970; 84153; 84550